=== PATIENT | male | born 1945 | race Caucasian/White ===

== ENCOUNTER 2017-09-17 12:03 | Day surgery (SDC) | payer BC ==
[~2017-09-17 12:03] MED LIST: Buffered Lidocaine 0.9% SYRIN* 5 ML/SYR SYRINGE INTRADERM ONE; Dexamethasone IV* 4 MG/ML 1 ML (4 MG) IV SLOW PU ONE; Famotidine IV* 10 MG/ML 2 ML (20 mg) IV ONE
[2017-09-17] MEDS ORDERED: Dexamethasone IV* 4 MG/ML 1 ML (4 MG) ONE (12:06)
[2017-09-17] MEDS ORDERED: Buffered Lidocaine 0.9% SYRIN* 5 ML/SYR SYRINGE ONE (12:07)
[2017-09-17] MEDS ORDERED: Propofol* 10 MG/ML 20 ML BTL IV PUSH ONE (13:36)
[2017-09-17] MEDS ORDERED: Midazolam* 1 MG/ML 5 ML VIAL (5 MG) ONE (13:36)
[2017-09-17] MEDS ORDERED: fentaNYL* 50 MCG/ML 2 ML VIAL (100 MCG VIAL) ONE (13:36)
[2017-09-17] MEDS ORDERED: Ondansetron INJ* 2 MG/ML VIAL ONE (13:36)
[2017-09-17] MEDS ORDERED: ceFAZolin 2 GM PREMIX (*) 2 GM/50 ML BAG IVPB ONE (13:42)
[2017-09-17] MEDS ORDERED: Famotidine TAB* 20 MG ONE (14:01)
[2017-09-17] MEDS ORDERED: Lidocain 1% EPI 1:100,000 * 30 ML MDV ONE (14:11)
[2017-09-17] MEDS ORDERED: Mineral Oil Sterile, TOPICAL* 25 ML BTL ONE (14:11)
[2017-09-17] MEDS ORDERED: Methylene Blue 0.5 %* 50 MG/10 ML AMP IV ONE (14:11)
[2017-09-17] MEDS ORDERED: Naloxone* 0.4 MG/ML 1 ML VIAL IV PRN (16:17)
[2017-09-17 17:46] VITALS: BP 131/86
== END 2017-09-17 18:01 | disposition home or self-care (01) ==
LOC: OR 12:03
PROVIDERS: ATTEND Plastic Surgery
DX: C44.319 Basal cell carcinoma of skin of other parts of face (principal); I10 Essential (primary) hypertension; I48.91 Unspecified atrial fibrillation; Z79.01 Long term (current) use of anticoagulants; Z87.891 Personal history of nicotine dependence; N18.9 Chronic kidney disease, unspecified; E78.5 Hyperlipidemia, unspecified; Z86.73 Personal history of transient ischemic attack (TIA), and cerebral infarction without residual deficits
CPT/HCPCS: 88305; 88331; 88332; A9270-GY; J0690; J1100; J2250; J2405; J2704; J3010

== ENCOUNTER 2019-01-27 07:06 | Inpatient (IN) | payer MEDICARE ==
--- NOTE | 2019-01-19 18:36 | HP ---
PREOPERATIVE HISTORY AND PHYSICAL: DATE OF ADMISSION: 01/29/19 ATTENDING SURGEON: Dr. Anderson * (DICTATED BY DILCIA COY) CHIEF COMPLAINT: Right hip pain. HISTORY OF PRESENT ILLNESS: This is a 73-year-old male, who has had approximately a year and a half of increasingly severe right hip pain. The patient reports 7/10 sharp shooting pain in the right groin. The pain can be increased with walking more than a block and he has had to use a cane at all times for ambulation. He has tried use of anti-inflammatories, narcotic pain medication, ambulatory assist devices, as well as a home exercise program without relief. He has difficulty with standing and stair climbing. He is seeking surgical intervention at this time. PAST MEDICAL HISTORY: Hypertension, atrial fibrillation, hypercholesterolemia, colitis, TIA, and skin cancer. PAST SURGICAL HISTORY: Spinal fusion x3, skin cancer excision, and thumb surgery. He denies anesthetic complications with any of these procedures. CURRENT MEDICATIONS: 1. Amlodipine besylate 5 mg 1 tab by mouth daily. 2. Delzicol 400 mg by mouth 3 times daily. 3. Tylenol Extra Strength 500 mg 3 times daily as needed. 4. Lovastatin 20 mg 1 tab by mouth q.h.s. 5. Metoprolol succinate ER 50 mg one and one-half tabs by mouth twice daily. 6. Eliquis 5 mg 1 tab by mouth twice daily. 7. Tramadol 50 mg 1 tab by mouth every 6 hours as needed for pain. ALLERGIES: NEURONTIN causes severe tremors and BROMIDE causes a rash. FAMILY HISTORY: Positive for heart disease in his father and a sibling with cancer, but no diabetes. SOCIAL HISTORY: He lives with his and she will be caring for him postoperatively. He is retired and disabled due to chronic back issues. He denies tobacco, alcohol, or recreational drug use and he tries to be active with ambulation and a cane. REVIEW OF SYSTEMS: Fourteen systems are reviewed with the patient today. They are positive for right hip pain and chronic back pain. He denies fever, chills , chest pain, or shortness of breath with exertion, and all other systems are negative. PHYSICAL EXAMINATION GENERAL: He is a well-developed, well-nourished, pleasant male, seated in exam chair, in no acute distress, with appropriate affect. VITAL SIGNS: Height is 69 inches, weight 214. Blood pressure 128/70, pulse 72. HEENT: Normocephalic, atraumatic. Hearing and vision are grossly intact, with extraocular movements intact. NECK: The trachea is midline and symmetrical. LUNGS: Clear to auscultation. No wheezes, rales, or rhonchi appreciated. CARDIO: Irregular rate and rhythm. No murmurs, rubs, or gallops appreciated. ABDOMEN: Nondistended, nontender. Bowel sounds present. GENITOURINARY: Deferred. MUSCULOSKELETAL: Right lower extremity: Skin is pink, dry, and intact without abrasions or open wounds. He flexes the hip to 70 degrees with severe pain and has 0 degrees of internal rotation and 15 degrees of external rotation with severe groin pain. No distal edema is appreciated. He has active range of motion with 5/5 strength against resistance in 4 planes in the right ankle and sensation is intact with a 2+ dorsalis pedis pulse. IMAGING: Multiple x-rays of the patient's hip were reviewed and show severe end- stage osteoarthritis with [id number] contact. There is joint space narrowing, osteophyte formation, and subchondral sclerosis. ASSESSMENT: Right hip severe osteoarthritis. PLAN: Right total hip arthroplasty with Dr. Anderson. The patient's questions were answered and he would like to proceed. He will follow up postoperatively and medications will be dispensed upon discharge from the hospital. DILCIA COY [id number]/[facility] #: [id number] MEHDI
[~2019-01-27 07:06] MED LIST changes: +Acetaminophen TAB* 325 MG PO ONE; -Buffered Lidocaine 0.9% SYRIN* 5 ML/SYR SYRINGE INTRADERM ONE; +Buffered Lidocaine 1% SYRIN* 1 ML/SYRINGE INTRADERM ONE; -Famotidine IV* 10 MG/ML 2 ML (20 mg) IV ONE; +Famotidine TAB* 20 MG PO ONE; +Lactated Ringers 1000 ML Bag* 1,000 ML IV SCH; +celeCOXIB CAP* 200 MG PO ONE
--- OUTSIDE RECORDS SUMMARY | 2019-01-27 07:10 | XMS REPORT | Summary of Care ---
:1945 Author Organization [facility] Address [address] [address] Care Team Providers Name Role Phone Wagner Easton MD Primary Care Provider Reason for Visit Reason Comments Pre-Op Exam Pt. scheduled for Total Right Hip Replacement with Dr. Maya Anderson on 01/27/19 Medication Management Please discuss Eliquis hold for Surgery. Encounter Details Date Type Department Care Team Description 01/19/2019 Office Visit Demian Gamboa, Preoperative cardiovascular examination (Primary Dx); Cardiology MD Christian Persistent atrial fibrillation (HCC); [address] Chronic diastolic congestive heart failure (HCC); [place] [address] [place] [address] Essential hypertension [phone] Allergies Active Allergy Reactions Severity Noted Date Comments Bromine Rash 01/18/2017 Gabapentin ENGINEERING TECHNICAL WRITER Reaction 01/18/2017 Uncontrolled Tremors documented as of this encounter (statuses as of 01/19/2019) Medications Medication Sig Dispensed Refills Start Date End Date Status mesalamine (DELZICOL) Take 400 mg by 0 Active 400 MG Oral CAPSULE mouth THREE DELAYED RELEASE TIMES DAILY. Lovastatin 20 MG Oral Take 20 mg by 0 Active Tab mouth EVERY BEDTIME. Acetaminophen Take by mouth. 0 Active (ACETAMINOPHEN EXTRA STRENGTH) 500 MG Oral Cap amLodipine (NORVASC) 5 Take 5 mg by 0 Active MG Oral Tab mouth DAILY. metoprolol succinate TAKE ONE TABLET 90 Tab 3 02/17/2018 Active (TOPROL XL) 100 MG Oral BY MOUTH EVERY TABLET SR 24 DAY HRIndications: Persistent atrial fibrillation (HCC) tramadol (ULTRAM) 50 MG Take 50 mg by 0 Active Oral Tab mouth EVERY SIX HOURS NEEDED for Pain. ELIQUIS 5 MG Oral TAKE ONE TABLET 180 Tab 3 06/26/2018 Active TabIndications: BY MOUTH TWICE A Persistent atrial DAY fibrillation (HCC) documented as of this encounter (statuses as of 01/19/2019) Active Problems Problem Noted Date Persistent atrial fibrillation 01/18/2017 Mixed hyperlipidemia 01/18/2017 Chronic diastolic congestive heart failure 01/18/2017 BPH (benign prostatic hyperplasia) 01/18/2017 Essential hypertension 01/18/2017 Collagenous colitis 01/18/2017 documented as of this encounter (statuses as of 01/19/2019) Resolved Problems Problem Noted Date Resolved Date CKD (chronic kidney disease) 01/18/2017 01/18/2017 documented as of this encounter (statuses as of 01/19/2019) Social History Tobacco Use Types Packs/Day Years Used Date Former Smoker Smokeless Tobacco: Never Used Sex Assigned at Date Recorded Not on file Job Start Date Occupation Industry Not on file Not on file Not on file Travel History Travel Start Travel End No recent travel history available. documented as of this encounter Last Filed Vital Signs Vital Sign Reading Time Taken Comments Blood Pressure 122/84 01/19/2019 1:38 PM EDT Pulse 85 01/19/2019 1:38 PM EDT Temperature - - Respiratory Rate - - Oxygen Saturation - - Inhaled Oxygen Concentration - - Weight 96.2 kg (212 lb) 01/19/2019 1:38 PM EDT Height 180.3 cm (5' 11") 01/19/2019 1:38 PM EDT Body Mass Index 29.57 01/19/2019 1:38 PM EDT documented in this encounter Patient Instructions Patient InstructionsMcChristian Martinez MD - 01/19/2019 1:40 PM EDT No medication changes today. OK to proceed with your hip surgery as we discussed. Hold the Eliquis for 48 hours prior to your surgery. Follow up in May as previously scheduled. documented in this encounter Progress Notes Christian Gamboa MD - 01/19/2019 1:40 PM EDT [facility] Note Patient: Juan Kennedy Date of : 1945 Date of Service: 01/19/2019 REFERRING PRACTITIONER: Maya Anderson PRIMARY CARE PROVIDER: Wagner Easton Chief Complaint: Chief Complaint Patient presents with Pre-Op Exam Pt. scheduled for Total Right Hip Replacement with Dr. Maya Anderson on 01/27/19 Medication Management Please discuss Eliquis hold for Surgery. History of Present Illness: We had the pleasure of seeing Juan Kennedy today at the [facility] Cardiology Office. He is a 73-y.o. male with HTN, hyperlipidemia, longstanding persistent atrial fibrillation, and chronic diastolic CHF. Mr. Kennedy returns to cardiology clinic today for perioperative evaluation prior to undergoing R total hip replacement with Dr. Anderson on 01/27. Since his last visit with me, he reports feeling fine other than his hip pain. D/t the pain he's unable to do much activity, but he's able to climb 1-2 flights of stairs without any CP or limiting dyspnea. Denies any palpitations, lightheadedness, or syncope. No orthopnea or paroxysmal dyspnea but does get some mild chronic lower extremity edema. No bleeding issues on Eliquis. Patient Active Problem List Diagnosis Persistent atrial fibrillation (HCC) Mixed hyperlipidemia Chronic diastolic congestive heart failure (HCC) BPH (benign prostatic hyperplasia) Essential hypertension Collagenous colitis Past Medical History: Diagnosis Date BPH (benign prostatic hyperplasia) 01/18/2017 Chronic diastolic congestive heart failure (HCC) 01/18/2017 CKD (chronic kidney disease) 01/18/2017 Collagenous colitis 01/18/2017 Essential hypertension 01/18/2017 Mixed hyperlipidemia 01/18/2017 Persistent atrial fibrillation (HCC) 01/18/2017 No past surgical history on file. Allergies Allergen Reactions Kerens Ion [Bromine] Rash Gabapentin ENGINEERING TECHNICAL WRITER Reaction Uncontrolled Tremors Current Outpatient Medications Medication Acetaminophen (ACETAMINOPHEN EXTRA STRENGTH) 500 MG Oral Cap amLodipine (NORVASC) 5 MG Oral Tab ELIQUIS 5 MG Oral Tab Lovastatin 20 MG Oral Tab mesalamine (DELZICOL) 400 MG Oral CAPSULE DELAYED RELEASE metoprolol succinate (TOPROL XL) 100 MG Oral TABLET SR 24 HR tramadol (ULTRAM) 50 MG Oral Tab Family history noncontributory Social History Socioeconomic History Marital status: Spouse name: Not on file Number of children: Not on file Years of education: Not on file Highest education level: Not on file Occupational History Not on file Social Needs Financial resource strain: Not on file Food insecurity: Worry: Not on file Inability: Not on file Transportation needs: Medical: Not on file Non-medical: Not on file Tobacco Use Smoking status: Former Smoker Smokeless tobacco: Never Used Substance and Sexual Activity Alcohol use: Not on file Drug use: Not on file Sexual activity: Not on file Lifestyle Physical activity: Days per week: Not on file Minutes per session: Not on file Stress: Not on file Relationships Social connections: Talks on phone: Not on file Gets together: Not on file Attends sikh service: Not on file Active member of club or organization: Not on file Attends meetings of clubs or organizations: Not on file Relationship status: Not on file Intimate partner violence: Fear of current or ex partner: Not on file Emotionally abused: Not on file Physically abused: Not on file Forced sexual activity: Not on file Other Topics Concern Not on file Social History Narrative Not on file Review of Systems - Negative except as noted in HPI. Physical Exam: Vitals: 01/19/19 1338 BP: 122/84 BP Location: Left arm Patient Position: Sitting Pulse: 85 Weight: 212 lb (96.2 kg) Height: 5' 11" (1.803 m) Body mass index is 29.57 kg/m. General: Overweight, alert 73-y.o. male in NAD HEENT: anicteric, MMM, no E/E OP, conj pink Neck: JVP approx 5 cm above RA, no carotid bruits or LAD CV: Irreg irreg, normal s1/s2, 1-2/6 CECI at USB as before. Pulm: CTA bilaterally without wheezes, rhonchi, or rales. No increased work of breathing. Abd: soft, obese, NT, ND, +BS. No appreciable pulsatile masses or bruits. Ext: Trace bilateral lower extremity edema, no cyanosis, no cords, redness, or warmth, 2+ distal pulses Neuro: no gross focal deficits but has a significant limp with climbing onto the exam table. Skin: no visible lesions Labs: No results found for: NA, K, CL, CO2, GLUCOSE, BUN, CREATININE, CALCIUM, TP, ALBUMIN, AST, ALT, ALK,TBILI, EGFR No results found for: BNP No results found for: CHOL, TRIG, HDL, LDL, LDLHDLRATIO, CHOLHDLRATIO Cardiac Studies: EKG Today (I personally reviewed): Afib in 80s. Incomplete RBBB. Poor R wave progression. Borderline inferior Q waves. No sig change from prior. TTE 02/08/17: FINAL IMPRESSION: Patient is in atrial fibrillation at the time of examination. Mild concentric LVH with moderate left atrial enlargement. Normal LV systolic function with no regional wall motion abnormalities; estimated LVEF 60-65%. Normal right heart size and RV systolic function. Aortic valve sclerosis with mild regurgitation and no significant stenosis. No pericardial effusion. Compared to prior echo report from [facility] 09/22/12, the left atrium is now moderately dilated (was previously reported as mild) and a pericardial effusion is no longer seen. All other findings are largely similar. TTE at [facility] 09/22/12: CONCLUSIONS 1. Rhythm is atrial fibrillation. 2. This was a technically adequate study. 3. The left ventricle size is normal. 4. There is mild concentric left ventricular hypertrophy. 5. Estimated LVEF 60 - 65%. 6. The right ventricle is normal in size and wall thickness. 7. The right ventricular systolic function is normal. 8. The left atrium is mildly dilated. 9. The right atrium is normal in size and function. 10. There is mild aortic valve sclerosis without stenosis. 11. There is trace to mild aortic incompetence. 12. Both mitral leaflets are mildly thickened. 13. Trace to mild mitral regurgitation is present. 14. The pulmonic valve appears structurally normal. 15. Trace/mild (physiologic)pulmonic regurgitation present. 16. The tricuspid valve appears structurally normal. 17. Mild tricuspid regurgitation present. 18. There is a trivial pericardial effusion present. 19. The aortic root is normal. 20. No prior reports available for comparison. Assessment & Plan: Juan Kennedy is a 73-y.o. male with HTN, hyperlipidemia, longstanding persistent atrial fibrillation, and chronic diastolic CHF. ICD-9-CM ICD-10-CM 1. Preoperative cardiovascular examination V72.81 Z01.810 AMBULATORY 12 LEAD EKG (GLOBAL) 2. Persistent atrial fibrillation (HCC) 427.31 I48.1 3. Chronic diastolic congestive heart failure (HCC) 428.32 I50.32 428.0 4. Essential hypertension 401.9 I10 1. Perioperative Risk Assessment: According to the Reese Perioperative Cardiac Risk Assessment Tool,Juan Kennedy has an estimated risk for perioperative NH or cardiac arrest with noncardiac surgeryof approximately 0.19%. According to the Revised Cardiac Risk Index, his estimated risk for perioperative NH, PE, cardiac arrest, or complete heart block with noncardiac surgery is approximately 0.9%.His functional status is no greater than 4 METs but he's limited by his hip pain and exhibits no evidence of angina or decompensated CHF at this time. In order to further evaluate and/or attenuate this patient's risk , I recommend the following: OK to proceed with his planned surgery at an acceptably low cardiac risk as detailed above. I don't have any recent labs available, but assuming his renal function is normal, then I'd recommend holding the Eliquis for 48 hours prior to surgery. If his renal function is impaired (creatinine > 1.5), then I'd recommend holding the Eliquis for 72 hours prior to surgery. Continue metoprolol perioperatively. Restart Eliquis as soon after surgery as deemed safe from a hemostatic standpoint. 2. Longstanding Persistent Atrial Fibrillation: The etiology of atrial fibrillation in this patient is most likely related to obesity and HTN. The heart-rate is currently well controlled on the currentmedical regimen, and there are no significant signs of heart failure. This patient's [id number]-Pegp score is 3. I recommend the following treatment strategy and medical regimen for this patient: Stroke prevention: Based on the patient's [id number] risk profile, I recommend continuing OACtherapy with Eliquis. He's doing well with that med. Rate control: Cont metoprolol XL 100mg daily. Rhythm control: N/A; pt is in chronic Afib and has no symptoms from it. Further workup/management issues: I'm checking a resting echo in May to ensure his LV function remains normal. Thank you for allowing me to participate in the care of Juan Kennedy. We will plan on f/u in our office in May as previously planned or sooner prn. If you have any questions or concerns pleasefeel free to call our office at [phone]. Christian Gamboa MD, 01/19/2019, 14:20 This note was created using my previous note as a template; changes were made where appropriate, andall information in the current note is up to date to the best of my knowledge.Electronically signed by Christian Gamboa MD at 2018 2:20 PM EDTdocumented in this encounter Plan of Treatment Date Type Specialty Care Team Description 05/14/2019 Orders Only Cardiology 05/25/2019 Office Visit Cardiology Christian Gamboa MD [address] [place] [address] [phone] Name Type Priority Associated Diagnoses Order Schedule AMBULATORY 12 LEAD EKG EKG Routine Preoperative cardiovascular Ordered: 05/2019 (GLOBAL) examination Health Maintenance Due Date Last Done Comments MEDICARE ANNUAL WELLNESS VISIT 1945 DEPRESSION SCREENING 1955 HIV SCREENING 09/16/1958 LIPID DISORDER SCREENING 09/16/1961 COLONOSCOPY SCREENING 09/16/1993 ZOSTER IMMUNIZATION SERIES (1 of 2) 09/16/1993 AAA SCREENING/SURVEILLANCE 09/16/2008 FALL RISK ASSESSMENT 09/16/2008 PNEUMOCOCCAL 65+YRS (1 of 2 - 09/16/2008 PCV13) INFLUENZA VACCINE (#1) 2019 HPV IMMUNIZATION SERIES Aged Out No longer eligible based on patient's age to complete this topic MENINGOCOCCAL VACCINE IMM Aged Out No longer eligible based on patient's age to complete this topic documented as of this encounter Results Not on filedocumented in this encounter Visit Diagnoses Diagnosis Preoperative cardiovascular examination - Primary Pre-operative cardiovascular examination Persistent atrial fibrillation (HCC) Atrial fibrillation Chronic diastolic congestive heart failure (HCC) Chronic diastolic heart failure Essential hypertension Unspecified essential hypertension documented in this encounter Insurance Payer Benefit Plan / Subscriber ID Effective Dates Phone Address Type Group [place]IC [place] [employer] xxxxxxxxxxxx [address] [employer] [facility] GENERIC documented as of this encounter
--- OUTSIDE RECORDS SUMMARY | 2019-01-27 07:10 | XMS REPORT | Continuity of Care Document ---
:1945 External Reference #:[id number] Author Name Maya Anderson M.D. (transmitted by agent of provider Joie Barrios) Address [address] [place] [id number] Care Team Providers Name Role Phone Wagner Easton MD - Family Care Team Information Financial Investment Adviser [phone] Medicine Problems Active Problems Provider Date Electrocardiogram abnormal Anton Alcala M.D. Onset: 10/07/2012 Atrial fibrillation Anton Alcala M.D. Onset: 10/07/2012 Benign essential hypertension Anton Alcala M.D. Onset: 10/07/2012 Chronic pulmonary heart disease Anton Alcala M.D. Onset: 10/07/2012 Pure hypercholesterolemia Anton Alcala M.D. Onset: 10/07/2012 Mitral and aortic incompetence Anton Alcala M.D. Onset: 11/10/2012 Localized, primary osteoarthritis of the Ines Trevizo MD Onset: 12/18/2018 pelvic region and thigh Social History Type Date Description Comments Sex Unknown ETOH Use Denies alcohol use Tobacco Use Start: Unknown End: Patient is a former smoker Quit 2012 Unknown Recreational Drug Use Never Used Drugs Smoking Status Reviewed: 01/16/19 Patient is a former smoker Quit 2012 Exercise Type/Frequency Exercises rarely Allergies, Adverse Reactions, Alerts Active Allergies Reaction Severity Comments Date Neurontin Moderate 03/10/2014 [place] [facility] used to treat indoor pool/spa- per 04/22/2014 patient Inactive Allergies NKDA 03/12/2006 Medications Active Medications SIG Qnty Indications Ordering Date Provider Amlodipine Besylate 1 by mouth every 30tabs Anton Thao 02/24/2014 5mg day Magen Alcala Tablets Delzicol take two 270caps Other Ordering 06/10/2013 400mg Capsules capsules by Provider DR calzada twice a day Tylenol Extra Strength tid Other Ordering 11/10/2012 For Arthritis Pain Provider 500mg Tablets Lovastatin po qhs 90tabs Unknown 20mg Tablets Eliquis Take One Tablet Unknown 5mg Tablets By Mouth Twice A Day Tramadol HCL Take One Tablet Unknown 50mg Tablets By Mouth Every 6 Hours as Needed Maximum Daily Dose 4 Acetaminophen ER 1 by mouth twice Unknown 650mg a day Tablets ER Metoprolol Succinate McClintic, ER Christian Walls MD 100mg Tablets ER 24HR Immunizations Description No Information Available Vital Signs Date Vital Result Comment 01/16/2019 10:10am Height 69 inches 5'9" Weight 209.00 lb Heart Rate 55 /min BP Systolic 136 mmHg BP Diastolic 80 mmHg Body Temperature 97.9 F Pain Level 8 BMI (Body Mass Index) 30.9 kg/m2 12/19/2018 2:25pm Height 69 inches 5'9" Weight 214.00 lb BP Systolic 128 mmHg BP Diastolic 70 mmHg Respiratory Rate 20 /min Pain Level 7 BMI (Body Mass Index) 31.6 kg/m2 Results Description No Information Available Procedures Description No Information Available Medical Devices Description No Information Available Encounters Type Date Location Provider Dx Diagnosis Office Visit 12/19/2018 Orthopedic Maya Anderson, M25.551 Pain in right hip 2:15p [facility] M16.11 Unilateral primary osteoarthritis, right hip Office Visit 12/18/2018 Orthopedic Ines Trevizo M16.11 Unilateral primary 10:30a [facility], right C.MNazaninANazanin hip Assessments Date Code Description Provider 12/22/2018 M25.551 Pain in right hip Maya Anderson M.D. 12/22/2018 M16.11 Unilateral primary osteoarthritis, right hip Maya Anderson M.D. 12/19/2018 M25.551 Pain in right hip Maya Anderson M.D. 12/19/2018 M16.11 Unilateral primary osteoarthritis, right hip Maya Anderson M.D. 12/18/2018 M16.11 Unilateral primary osteoarthritis, right hip Ines Trevizo MD Plan of Treatment Future Appointment(s):01/29/2019 4:15 pm - DAVE Reina at [facility].01/29/2019 4:15 pm - Bashir Dan PA-C at [facility].01/29/2019 4:15 pm - Maya Anderson M.D. at [facility] Functional Status Description No Information Available Mental Status Description No Information Available Referrals Description No Information Available
[2019-01-27] MEDS ORDERED: celeCOXIB CAP* 200 MG ONE (07:58)
[2019-01-27] MEDS ORDERED: Famotidine TAB* 20 MG ONE (07:58)
[2019-01-27] MEDS ORDERED: Dexamethasone IV* 4 MG/ML 1 ML (4 MG) ONE (07:58)
[2019-01-27] MEDS ORDERED: Acetaminophen TAB* 325 MG ONE (07:58)
[2019-01-27] MEDS ORDERED: Buffered Lidocaine 1% SYRIN* 1 ML/SYRINGE INTRADERM ONE (07:59)
[2019-01-27] MEDS ORDERED: ceFAZolin 2 GM in NS PREMIX(*) 0 GM/0 ML BAG IVPB ONE ×2 (07:59→08:02)
[2019-01-27] MEDS ORDERED: ceFAZolin 2 GM in NS PREMIX(*) 2 GM/100 ML BAG IVPB ONE (08:02)
[2019-01-27] MEDS ORDERED: HYDROmorphone INJ1* 1 MG/ML SYRINGE ONE (08:51)
[2019-01-27] MEDS ORDERED: fentaNYL* 50 MCG/ML 2 ML VIAL (100 MCG VIAL) ONE (08:51)
[2019-01-27] MEDS ORDERED: Rocuronium* 10 MG/ML VIAL ONE (08:51)
[2019-01-27] MEDS ORDERED: Midazolam* 1 MG/ML 2 ML VIAL (2 MG) ONE (08:52)
[2019-01-27] MEDS ORDERED: Lidocaine 2% PF * 5 ML VIAL ONE (08:52)
[2019-01-27] MEDS ORDERED: KETAMINE HCL* 50 MG/ML 10 ML VIAL ONE (08:52)
[2019-01-27] MEDS ORDERED: ROPIVACAINE 5 MG/ML 30 ML BTL (0.5%) ONE (09:19)
[2019-01-27] MEDS ORDERED: DiMENhydriNATE IV* 50 MG/ML VIAL IV PUSH PRN (10:25)
[2019-01-27] MEDS ORDERED: PROCHLORPERAZINE INJ 5 MG/ML 2 ML VIAL IV PRN (10:25)
[2019-01-27] MEDS ORDERED: oxyCODONE TAB* 5 MG TAB PO PRN (10:25)
[2019-01-27] MEDS ORDERED: Acetaminophen IV 1GM/100ML * 1,000 MG/100 ML VIAL IVPB ONE (10:25)
[2019-01-27] MEDS ORDERED: HYDROmorphone INJ1* 1 MG/ML SYRINGE IV PRN (10:25)
[2019-01-27] MEDS ORDERED: Naloxone* 0.4 MG/ML 1 ML VIAL IV PRN (10:25)
[2019-01-27] MEDS ORDERED: fentaNYL* 50 MCG/ML 2 ML VIAL (100 MCG VIAL) IV PRN (10:25)
[2019-01-27] MEDS ORDERED: Propofol* 10 MG/ML 20 ML BTL ONE (10:42)
[2019-01-27] MEDS ORDERED: Phenylephrine 40 MCG/ML SYRINGE ONE (10:43)
[2019-01-27] MEDS ORDERED: EPHEDrine (Pressors)* 50 MG/ML VIAL ONE (10:43)
[2019-01-27] MEDS ORDERED: Ondansetron INJ* 2 MG/ML VIAL ONE (11:46)
[2019-01-27] MEDS ORDERED: diPHENhydraMINE IV* 50 MG/ML 1 ml VIAL (BENADRYL) IV PRN (11:54)
[2019-01-27] MEDS ORDERED: Ondansetron INJ* 2 MG/ML VIAL IV PRN (11:54)
[2019-01-27] MEDS ORDERED: Bisacodyl SUPP* 10 MG SUPP PR PRN (11:54)
[2019-01-27] MEDS ORDERED: Acetaminophen TAB* 325 MG PO PRN (11:54)
[2019-01-27] MEDS ORDERED: Cyclobenzaprine TAB* 10 MG PO PRN (11:54)
[2019-01-27] MEDS ORDERED: Morphine INJ* 2 MG/ML 1 ML SYRINGE (TWO MG - NEW SYRINGE VERSION) IV PRN (11:54)
[2019-01-27] MEDS ORDERED: Magnesium Hydroxide LIQ* 30 ML UDC PO PRN (11:54)
[2019-01-27] MEDS ORDERED: oxyCODONE/Acetamin 5/325 MG* TAB PO PRN (11:54)
[2019-01-27] MEDS ORDERED: Acetaminophen IV 1GM/100ML * 100 ML ONE (12:22)
[2019-01-27] MEDS: Lactated Ringers 1000 ML Bag* 1,000 ML IV SCH (13:20)
--- NOTE | 2019-01-27 14:05 | CONS ---
HOSPITAL MEDICINE CONSULTATION REPORT: DATE OF CONSULT: 01/27/19 PROVIDER: Rani Diaz NP ATTENDING PHYSICIAN: Dr. Anderson.* CONSULTING PHYSICIAN: Dr. Tamia Ferrer (dictated by Rani Diaz NP). REASON FOR CONSULT: Co-management of chronic medical conditions. HISTORY OF PRESENT ILLNESS: Mr. Kennedy is a 73-year-old male with a past medical history significant for hypertension, atrial fibrillation, hyperlipidemia, history of TIA, CHF, BPH, and depressive disorder who presented to [facility] for an elective right total hip arthroplasty with Dr. Anderson. Please see dictated H and P from DILCIA Lobo, for complete details. In brief, the patient had ongoing pain, failed conservative measures, therefore opted for a right total hip arthroplasty with Dr. Anderson. In the immediate postoperative period, the patient has no complaints. Due to his chronic medical history of hypertension, atrial fibrillation, and congestive heart failure, Hospital Medicine was asked to see and evaluate the patient to help co- manage his care during his hospitalization. PAST MEDICAL HISTORY: 1. Hypertension. 2. Atrial fibrillation. 3. Hypercholesterolemia. 4. Colitis. 5. TIA. 6. History of skin cancer. 7. Diastolic congestive heart failure. 8. BPH. 9. Depressive disorder. PAST SURGICAL HISTORY: 1. Spinal fusion x3. 2. Skin cancer excision. 3. Cataract removal. 4. Tendon repair to the left thumb. HOME MEDICATIONS: Include: 1. Amlodipine 5 mg p.o. daily. 2. Tylenol 500 mg as needed for pain. 3. Apixaban 5 mg p.o. b.i.d. 4. Mesalamine 400 mg t.i.d. 5. Lovastatin 20 mg p.o. daily. 6. Metoprolol 100 mg p.o. daily. 7. Tramadol 50 mg p.o. q.6 hours as needed for pain. ALLERGIES: Allergic to BACITRACIN, BROMIDE SALTS, and GABAPENTIN. FAMILY HISTORY: Father from an [place] at the age of 55. No reported history of diabetes. Sister with stomach cancer. SOCIAL HISTORY: The patient denies any tobacco, alcohol, or illicit drug use. Surrogate decision maker in the event he is unable to make his own decisions is his . He is a full code. REVIEW OF SYSTEMS: The patient denies any chest pain, shortness of breath. Denies any nausea, vomiting, or diarrhea. Denies any abdominal pain. Denies any gross hematuria, dysuria, frequency, urgency, or pain with urination. Denies any weakness. PHYSICAL EXAM: General: Mr. Kennedy is a 73-year-old male. He is resting on the stretcher in PACU. He is drowsy. Well developed, well nourished. Vital Signs: Blood pressure 120/84, heart rate 87, respirations are 15, O2 saturation 96%, temperature was 97.2. HEENT: Head is atraumatic, normocephalic. Eyes: EOMs are intact. Sclerae anicteric and not pale. Oral mucosa appeared to be moist. Neck is supple. Lungs are clear to auscultation bilaterally. No wheezes, rales, or rhonchi. Cardiac: S1, S2. Irregular rate and rhythm. No rubs or gallops. Abdomen: Soft and nontender. Bowel sounds are present x4. Extremities: He is able to move all extremities. There is no clubbing or cyanosis. Dressing is dry and intact to his right hip. Neurologic: He is drowsy. He does not answer questions appropriately when asked and then falls asleep. He is able to move all 4 extremities. There is no gross neuro deficits at this time. Skin is intact. He does have a dressing that is dry and intact to his right hip. LABORATORY DATA AND DIAGNOSTIC STUDIES: CBC from 01/16/19: WBCs were 8.1, RBCs 4.97, hemoglobin 16.8, hematocrit was 48, platelet count 211. INR was 1.30. Chemistry, BMP from 01/16/19: Sodium 139, potassium 5.1, chloride 101, carbon dioxide was 29, anion gap was 9, BUN was 22, creatinine 1.47, glucose was 157, calcium 10.6. Total bili was 1.30, ASTs were 20, ALTs were 21, alkaline phosphatase was 46. IMPRESSION AND PLAN: Mr. Kennedy is a 73-year-old male with a past medical history significant for hypertension, atrial fibrillation, hypercholesterolemia , history of transient ischemic attack, and diastolic congestive heart failure who presented to [facility] for an elective right total hip arthroplasty. Due to his chronic medical conditions, Hospital Medicine was asked to consult to help co- manage his care during his hospitalization. Our recommendations are as follows: 1. Status post right total hip arthroplasty: Management per Orthopedics, PT/ OT per Orthopedics, bowel regimen per Orthopedics, pain management per Orthopedics. 2. Hypertension. I would continue on his amlodipine 5 mg as previously prescribed. 3. Atrial fibrillation. The patient should continue on metoprolol 100 mg po daily. as previously prescribed and he needs to resume his apixaban 5 mg p.o. b.i.d. as soon as possible. 4. Hyperlipidemia. The patient should continue on lovastatin 20 mg p.o. daily. 5. History of diastolic congestive heart failure. I would monitor the patient' s fluid intake closely and use caution with IV fluids. 6. FEN: The patient can have heart-healthy diet. 7. Code status: He is full code. 8. DVT prophylaxis: As per Orthopedics. TIME SPENT: Time spent on this consultation was 45 minutes, greater than half that time was spent at the bedside reviewing events leading thus far to his hospitalization, performing physical exam, and reviewing my plan of care. I have discussed this with my attending , Dr. Tamia Ferrer. She is in agreement with my plan. RANI DIAZ, [employer] OPERATOR [id number]/[facility] #: [id number] MEHDI
--- NOTE | 2019-01-27 14:22 | PN ---
Progress Note - Progress Note Date of Service: 01/27/19 Note: patient seen bedside s/p Right total hip arthroplasty this morning. He is feeling well. Minimal hip pain. No nausea, SOB, CP or dizziness, nausea. +DF right ankle. Sensation intact distally.
[2019-01-27] MEDS: oxyCODONE/Acetamin 5/325 MG* TAB PO PRN ×2 (14:38→22:57)
[2019-01-27] MEDS: Atorvastatin* 10 MG TAB PO SCH (18:28)
[2019-01-27] MEDS: ceFAZolin 1 GM ADVAN(*) 1 GM in NS 0.9% 50 ML* 50 ML IVPB SCH (18:28)
[2019-01-27] MEDS: amLODIPine TAB* 5 MG PO SCH (18:28)
[2019-01-27] MEDS: Magnesium Hydroxide LIQ* 30 ML UDC PO SCH (20:40)
[2019-01-27] MEDS: Docusate CAP* 100 MG PO SCH (20:40)
[2019-01-28] MEDS: ceFAZolin 1 GM ADVAN(*) 1 GM in NS 0.9% 50 ML* 50 ML IVPB SCH ×2 (01:46→09:48)
[2019-01-28] MEDS: Lactated Ringers 1000 ML Bag* 1,000 ML IV SCH (03:17)
[2019-01-28] MEDS: oxyCODONE/Acetamin 5/325 MG* TAB PO PRN ×4 (05:44→21:22)
[2019-01-28 07:10] LABS: Hematocrit 39 % (42-52); Hemoglobin 13.3 g/dL (14.0-18.0); Platelet Count 169 10^3/uL (150-450)
[2019-01-28 07:27] LABS: BUN/Creatinine Ratio 17.9 (8-20); Calcium 9.1 mg/dL (8.6-10.3); EGFR African American 57.4 (>60); EGFR Non-African American 47.4 (>60); Potassium 4.8 mmol/L (3.5-5.0)
[2019-01-28] MEDS: Docusate CAP* 100 MG PO SCH ×2 (08:35→20:32)
[2019-01-28] MEDS: Vitamin THERAPEUTIC TAB PO SCH (08:36)
[2019-01-28] MEDS: Magnesium Hydroxide LIQ* 30 ML UDC PO SCH ×2 (08:37→20:32)
[2019-01-28] MEDS ORDERED: Apixaban* 2.5 MG TAB PO SCH (09:00)
[2019-01-28] MEDS ORDERED: Metoprolol Tartrate TAB* 100 MG TAB PO SCH (09:00)
[2019-01-28] MEDS ORDERED: Metoprolol Tartrate TAB* 50 mg PO ONE (10:06)
--- NOTE | 2019-01-28 14:28 | PN ---
Progress Note - Progress Note Date of Service: 01/28/19 SOAP: Subjective: []Pt seen at bedside. He feels well with well controlled hip pain. Progressing well with PT. Denies CP, SOB, dizziness, nausea. Objective: []Gen: NAD, appears well RLE: Right hip dressing CDI, thigh soft, DF/PF intact, DP2+, sensation intact to light touch distally Calves supple and nontender without erythema, edema or palpable cords Assessment: []POD [address] Anderson Plan: []WBAT Posterior hip precautions with strict internal rotation precaution PT/OT eliquis 5 mg po BID home dose resumed at 2100 tonight, given 2.5 mg this morning Vital Signs Temp 98.5 F 01/28/19 11:20 Pulse 90 01/28/19 11:20 Resp 16 01/28/19 12:56 BP 110/72 01/28/19 12:15 Pulse Ox 96 01/28/19 11:20 Intake & Output 01/27/19 01/28/19 01/28/19 18:59 06:59 18:59 Intake Total 1999 1790 1374 Output Total 675 950 200 Balance 6189 545 4382 Weight 211 lb Intake: IV Fluids 1999 990 779 ABX - CEFAZOLIN 779 LR 1999 990 IVPB 100 55 ABX - CEFAZOLIN 100 55 Oral 700 540 Output: Urine 950 200 Broussard 425 Estimated Blood Loss 250 Other: Estimated Void Medium # Voids 1 Laboratory Last Values Hgb 13.3 g/dL (14.0-18.0) L 01/28/19 06:47 Hct 39 % (42-52) L 01/28/19 06:47 Plt Count 169 10^3/uL (150-450) 01/28/19 06:47 MPV 8.0 fL (7.4-10.4) 01/28/19 06:47 Sodium 136 mmol/L (135-145) 01/28/19 06:48 Potassium 4.8 mmol/L (3.5-5.0) 01/28/19 06:48 Chloride 103 mmol/L (101-111) 01/28/19 06:48 Carbon Dioxide 24 mmol/L (22-32) 01/28/19 06:48 Anion Gap 9 mmol/L (2-11) 01/28/19 06:48 BUN 26 mg/dL (6-24) H 01/28/19 06:48 Creatinine 1.45 mg/dL (0.67-1.17) H 01/28/19 06:48 Est GFR ( Amer) 57.4 (>60) 01/28/19 06:48 Est GFR (Non-Af Amer) 47.4 (>60) 01/28/19 06:48 BUN/Creatinine Ratio 17.9 (8-20) 01/28/19 06:48 Glucose 203 mg/dL (70-100) H 01/28/19 06:48 Calcium 9.1 mg/dL (8.6-10.3) 01/28/19 06:48
--- NOTE | 2019-01-28 16:49 | PN ---
Subjective Date of Service: 01/28/19 Interval History: Pt is feeling well. He denies any pain in his hip at rest, it is painful with ambulation. He anticipates going home tomorrow. No CP or SOB. Objective Active Medications: Acetaminophen (Tylenol Tab*) 650 mg PO Q8H PRN PRN Reason: PAIN-MILD/TEMP >/= 100.4 Amlodipine Besylate (Norvasc Tab*) 5 mg PO QPM [facility] Last Admin: 01/27/19 18:28 Dose: 5 mg Apixaban (Eliquis*) 5 mg PO BID [facility] Atorvastatin Calcium (Lipitor*) 5 mg PO QPM [facility] Last Admin: 01/27/19 18:28 Dose: 5 mg Bisacodyl (Dulcolax Supp*) 10 mg AR DAILY PRN PRN Reason: constipation Cyclobenzaprine HCl (Flexeril Tab*) 5 mg PO TID PRN PRN Reason: SPASMS Diphenhydramine HCl (Benadryl Iv*) 25 mg IV Q6H PRN PRN Reason: itching Docusate Sodium (Colace Cap*) 100 mg PO BID [facility] Last Admin: 01/28/19 08:35 Dose: 100 mg Lactated Ringer's (Lactated Ringers 1000 Ml Bag*) 1,000 mls @ 75 mls/hr IV PER RATE [facility] Last Admin: 01/28/19 03:17 Dose: 75 mls/hr Lactulose (Lactulose*) 30 ml PO Q6H PRN PRN Reason: constipation Magnesium Hydroxide (Milk Of Magnesia Liq*) 30 ml PO BID [facility] Last Admin: 01/28/19 08:37 Dose: 30 ml Magnesium Hydroxide (Milk Of Magnesia Liq*) 30 ml PO Q6H PRN PRN Reason: constipation Mesalamine (Mesalamine Dr Cap*) 800 mg PO QAM [facility] Last Admin: 01/28/19 08:35 Dose: 800 mg Mesalamine (Mesalamine Dr Cap*) 400 mg PO BEDTIME [facility] Last Admin: 01/27/19 20:41 Dose: 400 mg Morphine Sulfate (Morphine Inj (Syringe))*) 2 mg IV Q2H PRN PRN Reason: PAIN - SEVERE Multivitamins (Theragran Tab*) 1 tab PO DAILY [facility] Last Admin: 01/28/19 08:36 Dose: 1 tab Ondansetron HCl (Zofran Inj*) 4 mg IV Q6H PRN PRN Reason: nausea Oxycodone/Acetaminophen (Percocet 5/325 Tab*) 1 tab PO Q4H PRN PRN Reason: PAIN - MILD Last Admin: 01/28/19 12:56 Dose: 1 tab Oxycodone/Acetaminophen (Percocet 5/325 Tab*) 2 tab PO Q4H PRN PRN Reason: PAIN - MODERATE Vital Signs - 8 hr 01/28/19 01/28/19 01/28/19 09:22 09:47 11:20 Temperature 98.5 F Pulse Rate 88 90 Respiratory 16 Rate Blood Pressure 108/82 (mmHg) O2 Sat by Pulse 96 Oximetry 01/28/19 01/28/19 01/28/19 12:15 12:56 15:47 Temperature 98.6 F Pulse Rate 84 Respiratory 16 16 Rate Blood Pressure 110/72 114/72 (mmHg) O2 Sat by Pulse 95 Oximetry Oxygen Devices in Use Now: None Appearance: Elderly male sitting up in bed, NAD Eyes: No Scleral Icterus Ears/Nose/Mouth/Throat: Mucous Membranes Moist Respiratory: Symmetrical Chest Expansion and Respiratory Effort, Clear to Auscultation - anteriorly Cardiovascular: NL Sounds; No Murmurs; No JVD, RRR, - - trace B/L LE edema Abdominal: NL Sounds; No Tenderness; No Distention Extremities: No Clubbing, Cyanosis Skin: No Nodules or Sclerosis, - - hip incision not inspected by myself Neurological: Alert and Oriented x 3 Result Diagrams: 01/28/19 06:47 01/28/19 06:48 Assess/Plan/Problems-Billing Mr Kennedy is a 73 yo M who has a h/o HTN, afib and colitis who was admitted after an elective R total hip replacement. - Patient Problems (1) Status post total hip replacement, right Current Visit: Yes Status: Acute Code(s): Z96.641 - PRESENCE OF RIGHT ARTIFICIAL HIP JOINT SNOMED Code(s): 171654132344 Comment: Management per orthopedics. (2) HTN (hypertension) Current Visit: Yes Status: Acute Code(s): I10 - ESSENTIAL (PRIMARY) HYPERTENSION SNOMED Code(s): 26248567 Comment: BP was soft overnight and this AM. Metoprolol dose cut in half this AM. BP remains stable. (3) Afib Current Visit: Yes Status: Acute Code(s): I48.91 - UNSPECIFIED ATRIAL FIBRILLATION SNOMED Code(s): 51775997 Comment: HR is controlled. Continue half dose of metoprolol and eliquis. (4) Colitis Current Visit: Yes Status: Acute Code(s): K52.9 - NONINFECTIVE GASTROENTERITIS AND COLITIS, UNSPECIFIED SNOMED Code(s): 50266330 Comment: Continue mesalamine. (5) DVT prophylaxis Current Visit: Yes Status: Acute Code(s): Z29.9 - ENCOUNTER FOR PROPHYLACTIC MEASURES, UNSPECIFIED SNOMED Code(s): 555407735 Comment: Eliquis to start tonight (6) Full code status Current Visit: Yes Status: Acute Code(s): Z78.9 - OTHER SPECIFIED HEALTH STATUS SNOMED Code(s): 621908923
[2019-01-28] MEDS: amLODIPine TAB* 5 MG PO SCH (18:15)
[2019-01-28] MEDS: Atorvastatin* 10 MG TAB PO SCH (18:15)
[2019-01-28] MEDS ORDERED: Apixaban* 5 MG TAB PO SCH (21:00)
[2019-01-29 02:37] LABS: Troponin I 0.08 ng/mL (<0.04)
[2019-01-29] MEDS ORDERED: Nitroglycerin TAB 0.4 MG* 0.4 MG TAB SL PRN (02:51)
[2019-01-29 05:06] LABS: Hematocrit 37 % (42-52); Hemoglobin 12.5 g/dL (14.0-18.0); Mean Corpuscular HGB Conc 34 g/dL (31-36); Mean Corpuscular Hemoglobin 33 pg (27-31); Mean Corpuscular Volume 98 fL (80-94); Mean Platelet Volume 8.5 fL (7.4-10.4); Platelet Count 167 10^3/uL (150-450); Red Blood Count 3.76 10^6 /uL (4.18-5.48); Red Cell Distribution Width 13 % (10-15); White Blood Count 15.8 10^3/uL (3.5-10.8)
[2019-01-29 06:07] LABS: ALT 17 U/L (7-52); AST 37 U/L (13-39); Albumin 3.9 g/dL (3.2-5.2); Albumin/Globulin Ratio 1.6 (1-3); Alkaline Phosphatase 38 U/L (34-104); Anion Gap 8 mmol/L (2-11); BUN/Creatinine Ratio 24.1 (8-20); Blood Urea Nitrogen 39 mg/dL (6-24); CO2 Carbon Dioxide 26 mmol/L (22-32); Calcium 9.5 mg/dL (8.6-10.3); Chloride 103 mmol/L (101-111); EGFR African American 50.5 (>60); EGFR Non-African American 41.7 (>60); Globulin 2.5 g/dL (2-4); Glucose 197 mg/dL (70-100); Sodium 137 mmol/L (135-145); Total Protein 6.4 g/dL (6.4-8.9)
[2019-01-29] MEDS: oxyCODONE/Acetamin 5/325 MG* TAB PO PRN (06:08)
[2019-01-29 06:15] LABS: ABS Lymphocytes 1.6 10^3/ul (1.0-4.8); ABS Monocytes 1.6 10^3/ul (0-0.8); ABS Neutrophils 12.5 10^3/ul (1.5-7.7); Eosinophil % 0.2 %; Lymphocyte % 10.2 %; Nucleated Red Blood Cells % 0.1
[2019-01-29 06:16] LABS: Troponin I 0.08 ng/mL (<0.04)
--- NOTE | 2019-01-29 07:36 | PN ---
Progress Note - Progress Note Date of Service: 01/29/19 SOAP: Subjective: Pt. reports episode of chest tightness overnight, he reports he had multiple ekg 's and chest pressure resolved on its own. Objective: Vital Signs: Temp Pulse Resp BP Pulse Ox 98.4 F 106 16 133/80 92 01/29/19 07:19 01/29/19 07:19 01/29/19 07:19 01/29/19 07:19 01/29/19 07:19 Laboratory Results - last 24 hr 01/29/19 01/29/19 01/29/19 02:06 04:28 04:28 WBC 15.8 H RBC 3.76 L Hgb 12.5 L Hct 37 L MCV 98 H MCH 33 H MCHC 34 RDW 13 Plt Count 167 MPV 8.5 Neut % (Auto) 79.4 Lymph % (Auto) 10.2 [place] % (Auto) 10.1 Eos % (Auto) 0.2 Baso % (Auto) 0.1 Absolute Neuts (auto) 12.5 H Absolute Lymphs (auto) 1.6 Absolute Monos (auto) 1.6 H Absolute Eos (auto) 0.0 Absolute Basos (auto) 0.0 Absolute Nucleated RBC 0.0 Nucleated RBC % 0.1 Sodium 137 Potassium 5.0 Chloride 103 Carbon Dioxide 26 Anion Gap 8 BUN 39 H Creatinine 1.62 H Est GFR ( Amer) 50.5 Est GFR (Non-Af Amer) 41.7 BUN/Creatinine Ratio 24.1 H Glucose 197 H Calcium 9.5 Total Bilirubin 0.70 AST 37 ALT 17 Alkaline Phosphatase 38 Troponin I 0.08 H* 0.08 H* Total Protein 6.4 Albumin 3.9 Globulin 2.5 Albumin/Globulin Ratio 1.6 heent -yudi, alert and oriented x 3 chest - unlabored breathing heart - s1 and s2, irreg rhythm, tachy RLE - dressing c/d/i. distally nvi. Assessment: 73 yo M pod 2 s/p RTHA Plan: Chest pain/tightness overnight with cardiac history afib, and elevated troponins x 2. Echo being done now. Will obtain cardiac consult and appreciate hospitalist support. Hold d/c for today - will observe and follow troponins/monitor for any further chest pain. Cont Eliquis
[2019-01-29] MEDS ORDERED: Iodixanol* (CONTRAST) 320 MG/ML 100 ML SDV IV ONE (08:12)
--- NOTE | 2019-01-29 08:20 | PN ---
Hospitalist Progress Note Date of Service: 01/29/19 Responded to CAT team call for sudden onset right sided pleuritic chest pain which was recurrent from pain overnight. Patient denies shortness of breath, dizziness, or other symptoms. Patient states the pain recurs with every deep breath. Patient denies F/C. Patient is POD #2 from [facility]. Patient heart rate is tachycardic and irregularly irregular. Lungs are clear, patient is alert and oriented x3. CTA chest, Repeat Troponin, and heparin drip ordered. EKG shows lateral ST depressions and S waves in lead 1, Q waves in lead 3. Echo read pending.
[2019-01-29] MEDS ORDERED: Heparin DRIP 25,000 UNITS(*) 25,000 UNITS/500 ML BAG IV SCH (08:30)
[2019-01-29] MEDS ORDERED: Heparin VIAL(*) 5000 UNITS/ML VIAL (FIVE THOUSAND) IV SCH (09:00)
[2019-01-29] MEDS ORDERED: Metoprolol Succinate XL TAB* 100 MG PO SCH (09:00)
--- NOTE | 2019-01-29 09:10 | ECHO ---
*[facility]* [place] [address] Fax #: [phone] Transthoracic Echocardiogram Patient: Juan Kennedy : 1945 Study Date: 01/29/2019 Age: 73 Gender: M HR: Height: 71 in /180.3 cm BSA: 2.16 m^2 Weight: 210.6 lb /95.7 kg BMI: 29.4 kg/m^2 *Principal Web Developer: * Neelam Soto [facility] *Referring Physician: * Amarjit Roger *Reading Physician: * Jonas Salazar MD Indications: Chest Pain, unspecified. History: A-Fib, prior TIA. S/P right hip replacement01/27/2019. Risk factors: Hypertension. Dyslipidemia. Conclusions Summary: - Left ventricle: The cavity size is normal. Wall thickness is mildly increased. Systolic function is normal. The estimated ejection fraction is 60-65%. - Left atrium: The atrium is mildly dilated. - Mitral valve: There is mild to moderate regurgitation. - Aortic valve: A bicuspid morphology cannot be excluded. The leaflets are mildly thickened. Valve mobility is restricted. There is mild regurgitation. - Tricuspid valve: There is mild regurgitation. - Pulmonary arteries: Systolic pressure is mildly to moderately increased, estimated to be 49 mm Hg. Pulmonary artery pressure has increased from the previous study. Study data: Transthoracic echocardiogram. Procedure: Transthoracic echocardiography was performed. Image quality was adequate. Complete 2D, spectral Doppler, and color flow Doppler. Patient room number: 348. The previous study was not available, so comparison is made to the report of February 2014. Rhythm: Atrial fibrillation. Findings Left ventricle: The cavity size is normal. Wall thickness is mildly increased. Systolic function is normal. The estimated ejection fraction is 60-65%. Wall motion is normal; there are no regional wall motion abnormalities. Left ventricular diastolic function parameters are indeterminate. Right ventricle: Well visualized. The cavity size is normal. Wall thickness is normal. Systolic function is normal. Ventricular septum: Well visualized. Left atrium: Well visualized. The atrium is mildly dilated. Right atrium: Well visualized. The atrium is at the upper limits of normal in size. Atrial septum: Well visualized. Mitral valve: Well visualized. The leaflets are mildly thickened. No echocardiographic evidence for prolapse. There is no evidence of stenosis. There is mild to moderate regurgitation. Aortic valve: Not well visualized. A bicuspid morphology cannot be excluded. The leaflets are mildly thickened. Valve mobility is restricted. There is no evidence of stenosis. There is mild regurgitation. Tricuspid valve: Well visualized. The leaflets are normal thickness. There is no evidence of stenosis. There is mild regurgitation. Pulmonic valve: Well visualized. The leaflets are normal thickness. There is no evidence of stenosis. There is no significant regurgitation. Aorta: The aorta is well visualized and normal size. The aortic arch appears normal. Pericardium: There is no pericardial effusion. No evidence of pleural fluid accumulation. Pulmonary arteries: Systolic pressure is mildly to moderately increased, estimated to be 49 mm Hg. Pulmonary artery pressure has increased from the previous study. Systemic veins: Not well visualized. Inferior vena cava: There is (< 50%) respiratory change in the IVC dimension. Pulmonary veins: Not well visualized. Measurements Left ventricle Value Ref Aortic valve Value Ref RON, LAX 5.0 cm 4.2 - Kelsey diam, ED 2.4 cm ----- 5.8 Kelsey diam/bsa, ED 1.1 cm/m^2 ----- ESD, LAX 3.2 cm 2.5 - Peak v, S 1.18 m/sec ----- 4.0 VTI, S 14.1 cm ----- FS, LAX 35 % 25 - 43 Mean grad, S 2.0 mm Hg ----- PW, ED, LAX 1.0 cm 0.6 - Peak grad, S 6.0 mm Hg ----- 1.0 LVOT/AV, VTI ratio 0.6 ----- FS 35 % 25 - 43 AR peak v 3.45 m/sec ----- Mid-wall FS 16 % -------- AR PHT 373 ms ----- PW, ED (H) 1.1 cm 0.6 - AR peak grad 48 mm Hg ----- 1.0 PW/ID, ED 0.22 -------- Mitral valve Value Ref E', lat kelsey, TDI (L) 8.7 cm/sec >=10.0 Peak E 1.24 m/sec -- --- E/e', lat kelsey, TDI 14 -------- Decel time 151 ms ----- E', med kelsey, TDI 8.5 cm/sec >=7.0 Peak grad, D 6.2 mm Hg -- --- E/e', med kelsey, TDI 15 -------- E', avg, TDI 8.6 cm/sec -------- Pulmonic valve Value Ref E/e', avg, TDI 14 <=14 Peak v, S 0.69 m/sec -- --- Peak grad, S 2.0 mm Hg ----- LVOT Value Ref Peak yolanda, S 0.61 m/sec -------- Tricuspid valve Value Ref VTI, S 8.5 cm -------- TR peak v (H) 3.19 m/sec <=2.8 Mean grad, S 1 mm Hg -------- Peak RV-RA grad, S 41 mm Hg ----- Max TR yolanda 3.14 m/sec ----- Ventricular septum Value Ref IVS, ED (H) 1.1 cm 0.6 - Aortic root Value Ref 1.0 Root diam 3.8 cm <4.3 Root max diam, ED 3.8 cm <4.3 Right ventricle Value Ref RON, LAX 2.9 cm -------- Ascending aorta Value Ref RON minor ax, A4C 2.7 cm 1.9 - AAo AP diam, S 3.6 cm ----- mid 3.5 AAo AP diam/bsa, S 1.7 cm/m^2 ----- Left atrium Value Ref Aortic arch Value Ref ML dim, A4C 3.8 cm -------- Arch diam 2.9 cm ----- SI dim, A4C 6.9 cm -------- Vol/bsa, ES, 1-p (H) 41 ml/m^2 12 - 37 Decending aorta Value Ref A4C Kassandra peak yolanda 0.43 m/sec ----- Vol/bsa, ES, A/L 33 ml/m^2 16 - 34 Right atrium Value Ref SI dim, ES (H) 5.9 cm 3.4 - 5.3 ML dim, ES, A4C 3.2 cm 2.6 - 4.4 SI dim, ES, A4C (H) 5.9 cm 3.4 - 5.3 SI dim/bsa, ES, A4C 2.7 cm/m^2 1.8 - 3.0 Estimated RAP 8 mm Hg -------- Legend: (L) and (H) johnnie values outside specified reference range. Prepared and electronically signed by Jonas Salazar MD 01/29/2019 09:09
[2019-01-29 09:24] LABS: Troponin I 0.15 ng/mL (<0.04)
[2019-01-29 09:25] LABS: ABS Basophils 0.1 10^3/ul (0-0.2); ABS Lymphocytes 2.2 10^3/ul (1.0-4.8); ABS Monocytes 1.9 10^3/ul (0-0.8); ABS Neutrophils 12.7 10^3/ul (1.5-7.7); Eosinophil % 0.2 %; Hematocrit 40 % (42-52); Hemoglobin 13.3 g/dL (14.0-18.0); Lymphocyte % 12.8 %; Mean Corpuscular HGB Conc 33 g/dL (31-36); Mean Corpuscular Hemoglobin 33 pg (27-31); Mean Corpuscular Volume 98 fL (80-94); Mean Platelet Volume 8.6 fL (7.4-10.4); Platelet Count 183 10^3/uL (150-450); Red Cell Distribution Width 14 % (10-15); White Blood Count 16.9 10^3/uL (3.5-10.8)
[2019-01-29 09:38] LABS: Blood Urea Nitrogen 39 mg/dL (6-24); EGFR African American 54.4 (>60); EGFR Non-African American 44.9 (>60)
--- NOTE | 2019-01-29 10:03 | PN ---
Progress Note - Progress Note Date of Service: 01/29/19 SOAP: Subjective: []Pt seen at bedside for dressing change. He denies any current chest pain or pressure. He reports shortness of breath with exertion, better with rest. Objective: [] RLE: Right hip dressing was changed, incision CDI, Thigh is soft, DF/PF intact, DP2+, sensation intact to light touch distally Calves are supple and nontender, no erythema or edema. Assessment: []73 yo M pod 2 s/p RTHA Plan: Chest pain/tightness overnight with cardiac history afib. +elevated troponins not yet peaked. Discussed with Dr Salazar cardiology, cardio will consult. Discussed with Dr Mckeon, appreciate hospitalist support. Trend troponins/monitor for any further chest pain. Scheduled for CTA vs VQ scan , ddimer On heparin drip while further workup is pending Vital Signs Temp 98.9 F 01/29/19 08:44 Pulse 113 01/29/19 08:07 Resp 16 01/29/19 08:00 BP 139/89 01/29/19 08:07 Pulse Ox 93 01/29/19 09:07 Intake & Output 01/28/19 01/29/19 01/29/19 18:59 06:59 18:59 Intake Total 1374 920 Output Total 975 1600 275 Balance 399 -680 -275 Intake: IV Fluids 779 ABX - CEFAZOLIN 779 IVPB 55 ABX - CEFAZOLIN 55 Oral 540 920 Output: Urine 975 1600 275 Other: Estimated Void Medium # Bowel Movements 0 # Voids 1 Laboratory Last Values WBC 16.9 10^3/uL (3.5-10.8) H 01/29/19 08:20 RBC 4.10 10^6 /uL (4.18-5.48) L 01/29/19 08:20 Hgb 13.3 g/dL (14.0-18.0) L 01/29/19 08:20 Hct 40 % (42-52) L 01/29/19 08:20 MCV 98 fL (80-94) H 01/29/19 08:20 MCH 33 pg (27-31) H 01/29/19 08:20 MCHC 33 g/dL (31-36) 01/29/19 08:20 RDW 14 % (10-15) 01/29/19 08:20 Plt Count 183 10^3/uL (150-450) 01/29/19 08:20 MPV 8.6 fL (7.4-10.4) 01/29/19 08:20 Neut % (Auto) 75.2 % 01/29/19 08:20 Lymph % (Auto) 12.8 % 01/29/19 08:20 [place] % (Auto) 11.4 % 01/29/19 08:20 Eos % (Auto) 0.2 % 01/29/19 08:20 Baso % (Auto) 0.4 % 01/29/19 08:20 Absolute Neuts (auto) 12.7 10^3/ul (1.5-7.7) H 01/29/19 08:20 Absolute Lymphs (auto) 2.2 10^3/ul (1.0-4.8) 01/29/19 08:20 Absolute Monos (auto) 1.9 10^3/ul (0-0.8) H 01/29/19 08:20 Absolute Eos (auto) 0.0 10^3/ul (0-0.6) 01/29/19 08:20 Absolute Basos (auto) 0.1 10^3/ul (0-0.2) 01/29/19 08:20 Absolute Nucleated RBC 0.0 10^3/ul 01/29/19 08:20 Nucleated RBC % 0.0 01/29/19 08:20 APTT 31.6 seconds (26.0-38.0) 01/29/19 08:20 Sodium 137 mmol/L (135-145) 01/29/19 04:28 Potassium 5.0 mmol/L (3.5-5.0) 01/29/19 04:28 Chloride 103 mmol/L (101-111) 01/29/19 04:28 Carbon Dioxide 26 mmol/L (22-32) 01/29/19 04:28 Anion Gap 8 mmol/L (2-11) 01/29/19 04:28 BUN 39 mg/dL (6-24) H 01/29/19 08:20 Creatinine 1.52 mg/dL (0.67-1.17) H 01/29/19 08:20 Est GFR ( Amer) 54.4 (>60) 01/29/19 08:20 Est GFR (Non-Af Amer) 44.9 (>60) 01/29/19 08:20 BUN/Creatinine Ratio 24.1 (8-20) H 01/29/19 04:28 Glucose 197 mg/dL (70-100) H 01/29/19 04:28 Calcium 9.5 mg/dL (8.6-10.3) 01/29/19 04:28 Total Bilirubin 0.70 mg/dL (0.2-1.0) 01/29/19 04:28 AST 37 U/L (13-39) 01/29/19 04:28 ALT 17 U/L (7-52) 01/29/19 04:28 Alkaline Phosphatase 38 U/L (34-104) 01/29/19 04:28 Troponin I 0.15 ng/mL (<0.04) H* 01/29/19 08:20 Total Protein 6.4 g/dL (6.4-8.9) 01/29/19 04:28 Albumin 3.9 g/dL (3.2-5.2) 01/29/19 04:28 Globulin 2.5 g/dL (2-4) 01/29/19 04:28 Albumin/Globulin Ratio 1.6 (1-3) 01/29/19 04:28
[2019-01-29] MEDS ORDERED: Furosemide IV* 10 MG/ML 2 ML VIAL (20 MG) IV ONE (10:08)
[2019-01-29] MEDS ORDERED: Albuterol/Ipratropium NEB.SOL* Albuterol 2.5 MG/Ipratropium 0.5 MG 3 ML INH PRN (10:11)
[2019-01-29] MEDS ORDERED: Aspirin 81 mg CHEW TAB* 81 MG TAB.CHEW PO SCH (11:00)
[2019-01-29] MEDS: Vitamin THERAPEUTIC TAB PO SCH (11:23)
[2019-01-29] MEDS ORDERED: Metoprolol Succinate XL TAB* 50 MG PO SCH (11:26)
[2019-01-29] MEDS ORDERED: Metoprolol Tartrate IV* 1 MG/ML 5 ML VIAL IV ONE (11:42)
[2019-01-29 12:14] LABS: Cholesterol 128 mg/dL; HDL Cholesterol 55.1 mg/dL; LDL Cholesterol 54 mg/dL; Triglycerides 97 mg/dL
[2019-01-29 12:19] LABS: Troponin I 0.29 ng/mL (<0.04)
--- NOTE | 2019-01-29 12:26 | CONS ---
CONSULTATION REPORT: DATE OF CONSULT: 01/29/19 ATTENDING PHYSICIAN: Dr. Jonas Salazar, Cardiology.* (DICTATED BY SATINDER ALBERTO NP) PRIMARY PHYSICIAN: Dr. Easton. PRIMARY DETAILER: Dr. Christian Gamboa. REASON FOR CONSULTATION: Chest pain, troponin elevation, EKG changes. HISTORY OF PRESENT ILLNESS: This is a pleasant 73-year-old gentleman with a notable history of hypertension; hyperlipidemia; persistent AFib, on metoprolol and Eliquis therapy; diastolic heart failure; colitis; and chronic kidney disease with a baseline creatinine around 1.4. The patient presented to [facility] for an elective hip replacement on 01/27/[address] Anderson. Post-operatively at 0100 on 01/29/19, the patient developed sudden onset substernal chest tightness that was nonradiating with associated sensation of feeling hot. He was not short of breath at that time. Denies dizziness or lightheadedness. EKG was obtained at that time which showed new anterolateral ST segment depression. He was started on IV heparin therapy. The patient states at that time pain persisted for several hours that then resolved. He adds that while getting his transthoracic echocardiogram he developed a different type of chest pain that was more of a soreness and reproducible with inspiration. He adds that since the echocardiogram he has been having this chest pain described as a soreness any time he tries to breathe in. He denies any recurrent chest tightness. When I saw him, he was in the holding area awaiting to get his CTA of chest to rule out PE. He had just finished using urinal and was quite tachypneic with audible wheezes. He was given DuoNeb treatment with improvement of breathing effort and his lung sounds did clear. He states that he does feel more short of breath than baseline. Last ischemic evaluation according to primary day care center director, Dr. Nikita Gamboa, whom I personally spoke with, was approximately 10 years ago due to hypertension. Last echocardiogram 01/29/19 at 0252, per report; LVEF 60% to 65%, mild left atrial dilatation, [id number] mitral valve regurgitation, mild aortic valve regurgitation, mild tricuspid regurgitation, right ventricular systolic pressure 49 mmHg, with normal wall motion. PAST MEDICAL HISTORY: 1. Hypertension. 2. Hyperlipidemia. 3. Persistent AFib. 4. Diastolic heart failure. 5. Colitis. 6. Skin cancer. 7. BPH. 8. Chronic kidney disease. PAST SURGICAL HISTORY: Includes multiple back surgeries, skin biopsy, and intervention on left thumb. HOME MEDICATIONS: According to Dr. Nikita Gamboa's office note from 01/19/19: 1. Metoprolol 100 mg a day. 2. Lovastatin 20 mg a day. 3. Eliquis 5 mg p.o. b.i.d. 4. Norvasc 5 mg a day. 5. Tramadol as directed. ALLERGIES: Include GABAPENTIN which causes tremors and BROMINE which causes a rash. He denies allergy to contrast dye or shellfish. FAMILY HISTORY: Noncontributory. SOCIAL HISTORY: The patient is , retired, lives at home with his . He states he has been more sedentary than usual due to chronic hip pain. He denies alcohol or drug use. He is a former tobacco user and quit in 2010. REVIEW OF SYSTEMS: All systems have been reviewed and otherwise negative except as above mentioned in the HPI. PHYSICAL EXAM: The patient was at upright in bed, tachypneic upon entering the room, which was the holding area in Radiology. HEENT: Head is atraumatic, normocephalic. Oral mucosa is moist. Tongue is midline. Neck: Supple. Trachea midline. No JVD. No carotid bruits. Cardiac: Normal S1 and S2. Irregular rate and rhythm. No murmur, rub, or gallop noted. Lungs: Auscultated posteriorly. Respirations were labored at a rate of 24 with audible inspiratory and expiratory wheezes. No rhonchi noted. Abdomen: Distended, firm, nontender. Normoactive bowel sounds x4. Extremities: SCDs on bilaterally and working. No pedal edema. No clubbing. No cyanosis. Peripheral Vascular: 2+ brachial and dorsalis pedis pulse palpated bilaterally and symmetrically. DIAGNOSTIC STUDIES/LAB DATA: Blood work: White count 16.9, hemoglobin 13.3, hematocrit 40, platelets 183. Sodium 137, potassium 5, chloride 103, carbon dioxide 26, BUN 39, creatinine 1.52. Troponin #1 - 0.08; troponin #2 - 0.08; troponin #3 - 0.15. ECG obtained 01/29/19 at 0800, AFib, rate [address] segment depression, no ST segment elevation appreciated, known incomplete right bundle-branch block. Chest x-ray 01/29/19, per radiology report, no evidence of acute or active cardiopulmonary disease, no effusions appreciated. ASSESSMENT AND PLAN: 1. Complaints of chest pain with new anterolateral ST segment depression and troponin elevation; troponin has not peaked, third isoenzyme was 0.15. We will continue to cycle isoenzymes, recommend continuing IV heparin therapy. After administration of DuoNeb treatment, wheezing, shortness of breath, and pleuritic chest pain resolved. Thus, it does not appear that patient requires IV nitroglycerin at this time. We will check D-dimer. The patient has known chronic kidney disease. He will need an eventual ischemic evaluation. If D- dimer is elevated, we would recommend CTA of chest. We will determine type of ischemic evaluation based on clinical course. We will start aspirin 81 mg a day. Restart home beta-everardo, which is metoprolol 100 mg a day. Recommend continuing statin therapy and continuing to trend isoenzymes. LVEF was preserved on this morning's echocardiogram with no focal wall motion abnormality. 2. Status post hip replacement. Defer to Orthopedics and Primary Service. 3. History of persistent atrial fibrillation. CHADS-VASc greater than 2 given history of hypertension and age. On IV heparin therapy at this time. We will resume metoprolol 100 mg a day. 4. Decompensated diastolic heart failure; we will start IV Lasix 20 a day. Monitor daily BNP while being diuresed due to history of chronic kidney disease. The patient did respond well to DuoNeb treatments. We will resume beta -blockade therapy. 5. History of chronic kidney disease. It appears, based on review of the outpatient labs, baseline creatinine is 1.4; we will monitor closely while receiving IV diuresis. 6. Disposition. Pending course. I personally reviewed the case with Dr. Salazar, who agrees with the above assessment and plan and has personally seen and examined the patient. Thank you for this kind consultation. Any future questions or concerns, please do not hesitate to contact our practice. SATINDER ALBERTO, BOONE [id number]/[facility] #: [id number] discussed with Ms. Alberto. Jackson examined and chart reviewed. agree with plan. Josie Radford, discussed the case with Ms. Alberto and personally examined the patient on 01.29.19. The immediately preceeding statment (discussed with , Patient examined...) was placed by me (signature attributed to Ms. Alberto should be a Martin signature MTDD
[2019-01-29] MEDS ORDERED: Perflutren Lipid Microsphere* 3 ML VIAL ONE (13:25)
[2019-01-29] MEDS ORDERED: Midazolam* 1 MG/ML 5 ML VIAL (5 MG) ONE (14:12)
[2019-01-29] MEDS ORDERED: fentaNYL* 50 MCG/ML 2 ML VIAL (100 MCG VIAL) ONE (14:12)
[2019-01-29] MEDS ORDERED: Lidocaine 1% INJ* 10 MG/ML 30 ML SDV ONE (14:13)
[2019-01-29] MEDS ORDERED: Heparin(*) 1000 UNIT/ML 10 ML VIAL CATH LAB IV ONE (14:13)
[2019-01-29] MEDS ORDERED: nitroGLYCERIN DRIP* 25,000 MCG/250 ML BTL ONE (14:13)
[2019-01-29] MEDS ORDERED: VERAPAMIL 2.5 MG/ML 2 ML VIAL ** 5 mg/2 ml ONE (14:13)
[2019-01-29] MEDS ORDERED: Iodixanol 320 (CONTRAST) 100 ML SDV ONE (14:14)
--- NOTE | 2019-01-29 14:24 | PN ---
Hospitalist Progress Note Date of Service: 01/29/19 Hospitalist Progress Note This AM, patient experienced pleuritic chest pain and noted to have elevated troponin. Night coverage ordered TTE. Morning CAT call team noted patient to have elevated troponin with ST depressions, called cardiology and ordered heparin drip and CTA. Cardiology changed CTA to V/Q scan, but patient with significant dyspnea in imaging lab and another CAT call. vitals significant for tachycardia well appearing on morning exam, able to speak in full sentences without increased WOB no JVD rrr no mgr, tachycardic lungs with minimal expiratory wheeze diffusely, crackles at base abd soft nontender LE with trace edema over ankles A/P 73M with afib on Eliquis, HTN, HFpEF, ?possible IVC filter (placed 2007), presents for R total hip arthroplasty on 01/27. Course complicated by pleuritic, positional chest pain with ST depression, increasing troponin, and elevated D- dimer. Patient also with tachycardia, although beta-everardo was held on admission. Pending further work up per ICU team. Pt was unable to tolerate V/Q scan given significant dyspnea and hypoxia. As cardiology planned possible cath if no evidence for PE, they preferred to avoid contrast load for CTA, however, this may be necessary for PE diagnosis. No evidence of Right heart strain on TTE. Patient is on heparin drip.
--- NOTE | 2019-01-29 14:36 | ECHO ---
*[facility]* [place] [address] Fax #: [phone] Limited Transthoracic Echocardiogram Patient: Juan Kennedy : 1945 Study Date: 01/29/2019 Age: 73 Gender: M HR: 108 bpm Height: 70.9 in /180 cm BSA: 2.21 m^2 Weight: 211.2 lb /96 kg BMI: 29.6 kg/m^2 *Hose Inspector And Patcher: Neelam Marinelli [facility] *Referring Physician: * Jonas Salazar MD *Reading Physician: * Jonas Salazar MD Indications: Chest Pain, unspecified. SOB. History: Atrial fibrillation. Transient ischemic attack. Risk factors: Hypertension. Dyslipidemia. Study data: Transthoracic echocardiogram, limited study. Procedure: Transthoracic echocardiography was performed. Image quality was adequate. Intravenous Definity , 4 mlswas administered. Complete 2D, spectral Doppler, and color flow Doppler. Location: ICU Patient status: Inpatient. Patient room number: 5. The previous study was not available, so comparison is made to the report of 01/29/2019. Study status: Stat. Rhythm: Atrial fibrillation. Findings Left ventricle: Systolic function is moderately reduced. The estimated ejection fraction is 35-40%. Systolic function is worse from the study of 01/29/2019 am. At that time, there was overall hyperdynamic left ventricle function with subtle relative hypokinesis of the inferior posterior segments. Regional wall motion abnormalities: Akinesis of the basal inferior and mid inferolateral myocardium; hypokinesis of the basal inferoseptal, mid-apical inferior, basal inferolateral, basal-mid anterolateral, apical septal, apical lateral, and apical myocardium. Right ventricle: Systolic function is mildly reduced. Hypokinesis of the right ventricle free wall near the apex. Prepared and electronically signed by Jonas Salazar MD 01/29/2019 14:35
[2019-01-29] MEDS ORDERED: Morphine 10 MG/ML VIAL (1 ml) ONE (15:41)
[2019-01-29] MEDS ORDERED: DOPamine 800 MG/250 ML IVPREM* 800 MG/250 ML ML CENTR ONE (16:28)
--- NOTE | 2019-01-29 16:44 | PN ---
Date of Service: 01/29/19 Critical Care Services: 73 y/o male with Hx hypertension, Afib, mitral insufficiency, CHF, and s/p IVC filter placement - had right hip replacement 2 days ago and since then has had intermittent problems with chest pain and O2 desaturation - scheduled for V/Q scan today to r/o PE but brought to ICU because of severe O2 desaturation requiring high-flow, humidified nasal O2 (Vapotherm). Vital Signs: Temp Pulse Resp BP SpO2 FiO2 97.4 F 110 26 91/73 96 100 Physical Exam: Gen:Awake and oriented. Is tachypneic, but no respiratory distress. HEENT:Normal Lungs:Clear. No crackles or wheezes Cardiac: Irreg rhythm. No murmurs Abdomen: not distended. Extremities: warm. no cyanosis or edema. Neuro: no motor or sensory deficit. Fluid Balance (Past 24 Hours): 01/28/19 01/29/19 06:59 06:59 Intake Total 3790 2294 Output Total 1625 2575 Balance 2165 -281 Weight 211 lb Intake: IV Fluids 2990 779 ABX - CEFAZOLIN 779 LR 2990 IVPB 100 55 ABX - CEFAZOLIN 100 55 Oral 700 1460 Output: Urine 950 2575 Broussard 425 Estimated Blood Loss 250 Other: Estimated Void Medium # Bowel Movements 0 # Voids 1 Labs: 01/29/19 01/29/19 01/29/19 02:06 04:28 04:28 WBC 15.8 H RBC 3.76 L Hgb 12.5 L Hct 37 L MCV 98 H MCH 33 H MCHC 34 RDW 13 Plt Count 167 MPV 8.5 Neut % (Auto) 79.4 Lymph % (Auto) 10.2 [place] % (Auto) 10.1 Eos % (Auto) 0.2 Baso % (Auto) 0.1 Absolute Neuts (auto) 12.5 H Absolute Lymphs (auto) 1.6 Absolute Monos (auto) 1.6 H Absolute Eos (auto) 0.0 Absolute Basos (auto) 0.0 Absolute Nucleated RBC 0.0 Nucleated RBC % 0.1 APTT D-Dimer, Quantitative Sodium 137 Potassium 5.0 Chloride 103 Carbon Dioxide 26 Anion Gap 8 BUN 39 H Creatinine 1.62 H Est GFR ( Amer) 50.5 Est GFR (Non-Af Amer) 41.7 BUN/Creatinine Ratio 24.1 H Glucose 197 H Calcium 9.5 Total Bilirubin 0.70 AST 37 ALT 17 Alkaline Phosphatase 38 Troponin I 0.08 H* 0.08 H* B-Natriuretic Peptide Total Protein 6.4 Albumin 3.9 Globulin 2.5 Albumin/Globulin Ratio 1.6 Triglycerides Cholesterol LDL Cholesterol HDL Cholesterol 01/29/19 01/29/19 01/29/19 08:20 08:20 08:20 WBC 16.9 H RBC 4.10 L Hgb 13.3 L Hct 40 L MCV 98 H MCH 33 H MCHC 33 RDW 14 Plt Count 183 MPV 8.6 Neut % (Auto) 75.2 Lymph % (Auto) 12.8 [place] % (Auto) 11.4 Eos % (Auto) 0.2 Baso % (Auto) 0.4 Absolute Neuts (auto) 12.7 H Absolute Lymphs (auto) 2.2 Absolute Monos (auto) 1.9 H Absolute Eos (auto) 0.0 Absolute Basos (auto) 0.1 Absolute Nucleated RBC 0.0 Nucleated RBC % 0.0 APTT 31.6 D-Dimer, Quantitative Sodium Potassium Chloride Carbon Dioxide Anion Gap BUN 39 H Creatinine 1.52 H Est GFR ( Amer) 54.4 Est GFR (Non-Af Amer) 44.9 BUN/Creatinine Ratio Glucose Calcium Total Bilirubin AST ALT Alkaline Phosphatase Troponin I 0.15 H* B-Natriuretic Peptide Total Protein Albumin Globulin Albumin/Globulin Ratio Triglycerides Cholesterol LDL Cholesterol HDL Cholesterol 01/29/19 01/29/19 01/29/19 11:38 11:38 11:38 WBC RBC Hgb Hct MCV MCH MCHC RDW Plt Count MPV Neut % (Auto) Lymph % (Auto) [place] % (Auto) Eos % (Auto) Baso % (Auto) Absolute Neuts (auto) Absolute Lymphs (auto) Absolute Monos (auto) Absolute Eos (auto) Absolute Basos (auto) Absolute Nucleated RBC Nucleated RBC % APTT D-Dimer, Quantitative 394 H Sodium Potassium Chloride Carbon Dioxide Anion Gap BUN Creatinine Est GFR ( Amer) Est GFR (Non-Af Amer) BUN/Creatinine Ratio Glucose Calcium Total Bilirubin AST ALT Alkaline Phosphatase Troponin I 0.29 H* B-Natriuretic Peptide 427 H Total Protein Albumin Globulin Albumin/Globulin Ratio Triglycerides 97 Cholesterol 128 LDL Cholesterol 54 HDL Cholesterol 55.1 Studies: TTE: Deterioration in LV function with inferior wall hypokineses on TTE from 3: 00 PM vs TTE from 7:00 AM. ECG: Afib with Q waves V1-V3. Nutrition: Oral diet - intake good Impression: Most likely source of O2 desaturation is cardiac (considering the changes on cardiac ECHO) Plan: Patient going for cardiac catheterization. Critical Care Time: 40 minutes
[2019-01-29] MEDS ORDERED: Furosemide IV* 10 MG/ML VIAL (40 MG) ONE (16:54)
--- NOTE | 2019-01-29 18:10 | DS ---
DISCHARGE SUMMARY: DATE OF ADMISSION: 01/27/19 DATE OF DISCHARGE: 01/29/19 HOSPITAL COURSE: This is a 73-year-old male with a history of atrial fibrillation, hypertension, coronary artery disease, mitral insufficiency, and hyperlipidemia who underwent an elective right hip replacement on 01/27/19 and postoperatively has had difficulty with recurrent chest pain, shortness of breath, and arterial O2 desaturation. The patient went for a V/Q scan earlier today to rule out pulmonary embolism, and while in the nuclear medicine suite, he developed worsening O2 desaturation respiratory distress and was brought to the intensive care unit. Upon admission to the ICU, the patient was placed on high-flow humidified nasal O2 (Vapotherm) and maintained arterial O2 sats in the mid 90s. Systolic blood pressure had decreased to between 100 to 110 systolic, but the patient was awake and appeared comfortable. Two transthoracic cardiac ultrasound exams today show progressive LV dysfunction, and the most recent exam shows inferior wall hypokinesis -because of the ultrasound changes, the patient went to the cardiac catheterization lab - coronary angiography showed obstructive lesions in right coronary artery, along with a high LVEDP (39 to 40 mmHg) and mitral insufficiency. Because of progressive hypotension in the label stitcher, an intra-aortic balloon pump was inserted and the patient will be transferred for further management. FINAL DIAGNOSES: 1. Ischemic cardiomyopathy with severe left ventricular dysfunction. 2. Mitral insufficiency 3. Atrial fibrillation 4. Right hip arthroplasty. 5. History of hypertension. DISPOSITION: Patient transferred to [facility] for management. [id number]/[facility] #: [id number] MTDD
[2019-01-29 18:15] VITALS: BP 82/53
[2019-01-29] MEDS: Atorvastatin* 10 MG TAB PO SCH (18:20)
--- NOTE | 2019-01-29 19:22 | PN ---
Hospitalist Progress Note Date of Service: 01/29/19
--- NOTE | 2019-01-29 19:24 | CONS ---
CARDIOLOGY CONSULT UPDATE: DATE OF CONSULT: 01/29/19 Over the course of the day, the patient had recurrent episodes of shortness of breath, diaphoresis, and chest pressure. A repeat echo in the afternoon showed more pronounced inferior posterior hypokinesis, decrease in LV function c/t earlier in the day. Because of his troponin elevation, abnormal EKG, the wall motion abnormality, he was taken to the Gyn Physician. He was found to have a severe lesion in his right coronary artery and elevated LVEDP of 32. He also had borderline blood pressures and was felt to be in cardiogenic shock. A small bolus of 20 cc for an LV gram raised the possibility of sig MR. His echo earlier in the day, in the morning, had suggested moderate MR. The concern was that he had severe ischemia and possible ischemic MR and decompensated congestive heart failure and cardiogenic shock. Dr. Mishra decided to place a balloon pump with some improvement in the patient's hemodynamics and dyspnea and I was asked to coordinate transfer to facility that could provide revascularization and possible surgical support if indeed he needed mitral valve replacement. He also might require a LVAD in the interim. I was able to contact Dr. Powell in [facility] and Dr. Brandt, the laser engraver at [facility] who kindly agreed to accept the patient transfer. I spoke to the patient's and explained the situation and she understands and concurred with the transfer prior to making the arrangements. Over 60 plus minutes were spent on the merlos coordinating care and in consultation. [id number]/[facility] #: [id number] MTDD
--- NOTE | 2019-01-29 19:27 | PN ---
Hospitalist Progress Note Date of Service: 01/29/19 Delayed entry note. Patient was having chest pain last night. Got EKG which looked abnormal with ST depression. BP was too low to give any nitro. I asked bushing press operator to connect to Cardiology but they instead connected me to interventional cardiology around 2-3AM. I spoke with Dr. Mishra for 15-20 minutes regarding the EKG explained patient already on Eliquis unable to do much else in ACS but given that the ST segments are depressed and not elevated he didn't think patient meets ST elevation IN criteria. I ordered ECHO. Patient's pain had resolved before giving nitro and given low normal range of BP I didn't think it would be advised.
[2019-01-30] MEDS ORDERED: Metoprolol Succinate XL TAB* 50 MG PO SCH (09:00)
--- NOTE | 2019-01-31 15:36 | CATH ---
CC: Dr. Easton; Dr. Gamboa at [place]; Dr. Anderson; Dr. Anuj Mishra * CATH REPORT: DATE OF PROCEDURE: 01/29/19 - ROOM #ICU-05 PRIMARY CARE PHYSICIAN: Dr. Easton. FINANCIAL COMPLIANCE OFFICER: Dr. Gamboa at [place]. ORTHOPEDIST: Dr. Anderson. PROCEDURES: Right radial artery access with ultrasound guidance. Right medial antecubital vein access, right femoral artery sheath placement, bilateral selective coronary cineangiography, placement of intra-aortic balloon pump right common femoral artery. HISTORY: A 73-year-old male with [id number] mitral regurgitation with preserved LV function on prior noninvasive testing. After hip surgery, he developed a likely type 2 infarct with very small troponin elevation, subsequent progressive symptoms of decompensated heart failure with worsening mitral regurgitation leading to hypotension with respiratory failure requiring high-flow oxygenation. There was concern for pulmonary embolus; however, because of elevated creatinine, a CT angiography was not performed, the patient was referred for a V/Q scan, which could not be completed because of severe dyspnea. He has prior IVC filter for DVT with contraindication to anticoagulation, rendering PE less likely. He was brought to the laboratory phlebotomist because of progressive hemodynamic deterioration and progressive respiratory failure. PROCEDURE ACCESS: Right radial artery sheath, 6-F slender with ultrasound. The radial wire was used to exchange the right antecubital IV for a 5-[place] sheath, however the wire would not advance more proximally, contrast injection demonstrated occlusion of the vein more proximally with filling through a bridging collateral, that approach therefore did not allow placement of a [place]- [place] catheter to assess PA pressures. By prior echo, he had moderate pulmonary hypertension. He then had bilateral coronary angiography via the radial approach as well as a 20 cc/1 second LV gram to assess the severity of his MR with limitation of contrast because of his elevated creatinine. Because of progressive hypotension in the laboratory phlebotomist with systolics into the 70 to 80s, dopamine 2 mcg/kg/min was started through a sheath in the right femoral vein, and an intra-aortic balloon pump was placed in the right common femoral artery with ultrasound assistance. MEDICATIONS: 1. Subcu lidocaine. 2. IV fentanyl. 3. Morphine 2 mg IV. HEMODYNAMICS: Initial BP 93/66, LV post coronary angiography 78/22-31. Mean blood pressure with intra-aortic balloon pump in place 70s. ANGIOGRAPHY: RCA: The RCA is heavily calcified, dominant, moderate, the mid RCA just proximal to the acute margin has a tubular 80% to 90% stenosis preceded by moderate diffuse disease. Distally, the PDA is moderate followed by moderate posterolateral. Flow is LEEANN-3, there is no evident thrombus. Left main: The left main is normal in size, has no stenosis, there is calcification at the left main as well as proximal LAD and circumflex coronary arteries. The LAD supplies a pair of small to moderate diagonals, and is distally past the apex, the LAD has scattered luminal irregularity but no significant stenosis. Circumflex: The circumflex is moderate, nondominant, with a moderate marginal branch and small distal posterolateral, the circumflex has scattered mild luminal irregularity but no significant stenosis. LV gram: 20 cc/1 second LV gram shows inferobasilar akinesis, with inadequate LV filling to assess global EF. The inferior wall, however, appears hypokinetic. There is left atrial filling on the first beat after injection suggestive of severe mitral regurgitation. Volume load was limited because of renal insufficiency. CONCLUSION: Single-vessel disease right coronary artery with likely type 2 infarct due to decompensated diastolic heart failure leading to inferior wall stunning with very small troponin elevation, progressively worsening mitral regurgitation leading to cardiogenic shock, stabilized with intra-aortic balloon pump counterpulsation. The patient was subsequently transferred to [facility] for further evaluation and potential high-risk PCI intervention versus surgical therapy. [id number]/[facility] #: [id number] MTDD
--- NOTE | 2019-02-13 12:38 | OP ---
Operative Report - Blank - Operative Report Date of Operation: 01/27/19 Note: GENOVEVA MONTENEGRO 1945 Date Of Surgery: 01/27/19 Maya Anderson MD Signalman: Pardeep HA did help throughout the procedure with preparation of the hip, wound retraction, manipulation of the hip, and wound closure. Anesthesiologist: Rose Parrish MD Anesthesia Type: Spinal Preoperative Diagnosis: Right severe degenerative osteoarthritis of the hip Postoperative Diagnosis: As above Procedure Performed: Right Total Hip Arthroplasty Complications: None Specimen: Femoral head and acetabular reamings sent to pathology. Hardware used: This is uncemented Alfredo total hip arthroplasty hardware for the femur a accolade II femoral component, for the acetabulum a size 54 E tritanium II trident cluster hole shell with one screw, for the insert a size 42E MDM cementless liner, 28/48/42E x3 MDM insert, and for the femoral head a size 28 +8 V40 femoral head. Brief history/Indication: GENOVEVA MONTENEGRO was known in clinic and had a history of severe right hip pain. He failed conservative treatment with anti- inflammatories, pain pills, intra-articular injections and physical therapy. He elected to undergo right total hip arthroplasty due to continued pain and decreased quality of life. Radiographs showed severe end stage osteoarthritis of the hip with bone on bone contact. Informed consent was obtained from the patient. He understood the risks of surgery included but were not limited to: bleeding, infection, damage to nearby structures, intraoperative fracture, nerve palsy, failure of the hardware, early loosening, stiffness or loss of motion, dislocation, leg length discrepancy, anesthesia complications, stroke, heart attack, blood clot and . He wished to proceed. Intra-Operative findings: Intraoperatively the patient was noted to have severe loss of cartilage of the acetabulum and femoral head. Description of the Procedure: GENOVEVA MONTENEGRO was identified in the preanesthesia unit. His right hip was marked as the correct operative side. Informed consent was signed and placed in the chart. The patient was taken to the operating room and placed under anesthesia without complication. A patel catheter was placed. The patient was placed on the peg board with all bony prominences well padded. The right lower extremity was prepped and draped in the usual sterile fashion. Preoperative time -out was made to correctly identify the patient, side and site. Appropriate intraoperative antibiotics were given within one hour of incision. A standard posterior incision was made and carried sharply down to the lateral fascia. A new 10 blade was used to make an incision in the fascia in line with the skin incision. A charnley retractor was placed. The piriformis and conjoined tendons were identified and elevated off the posterolateral femur using electrocautery. These were tagged with number 5 Ethibond. Next electrocautery was used to make a posterolateral capsular flap and this was tagged with number 5 Ethibonds. The hip was carefully dislocated. Lesser trochanter to the center of the femoral head was measured at 65 mm. The oscillating saw was used to make the femoral neck cut. The femoral head was carefully removed. The femur was retracted anteriorly and the acetabular retractors were placed. Long-handled knife was used to sharply remove any remaining labrum from the acetabular rim. The acetabulum was sequentially reamed up to a size 54. A bleeding subchondral bone bed was obtained. A trial liner was placed and had excellent fit and stability. A 54E trident II tritanium cup with a screw was placed and had excellent stability with appropriate anteversion and abduction angle. A size 42 E cementless mdm liner was impacted into the acetabular shell. The liner was checked for stability and was stable. Next attention was turned to preparation of the femoral canal. A canal finder was used to enter the proximal femur. The femoral canal was sequentially broached up to tight press fit. A trial neck and 28 +8 trial femoral head was chosen. Lesser trochanter to center of the femoral head measurement was satisfactory. The hip was reduced and taken through a range of motion. The hip was stable in all positions with good soft tissue tension and appropriate leg lengths. The hip was dislocated and all trials were removed. The final implant chosen was an accolade II stem. This stem was impacted into the femoral canal without difficulty. The stem was stable with appropriate anteversion. The femoral head chosen was a 28 + 8 with the 28/42E x3 mdm liner. The head was impacted onto the femoral neck without difficulty. The final lesser trochanter to center of the femoral head measurement was satisfactory. The hip was reduced and taken through a range of motion. The hip was stable in all positions with good soft tissue tension and appropriate leg lengths. The hip was copiously irrigated with sterile saline. The previously tagged capsule and tendons were repaired to the posterolateral femur through two trochanteric drill holes. The lateral fascia layer was closed using number 1 vicryls. The rest of the incision was closed in a layered fashion using 0 and 2-0 vicryls. The skin was closed using 3-0 monocryl suture and Dermabond. Sterile adaptic, 4x4s and paper tape was used to cover the incision. The patients anesthesia was reversed without difficulty. He was taken to the PACU in stable condition. Intended weight-bearing will be as tolerated with posterior hip precautions.
== END 2019-01-29 19:00 | disposition short-term general hospital (02) | DRG 469 ==
LOC: AA 07:06 → SSU 13:57 → MEDTELE 01-29 08:13 → ICU 01-29 13:23
PROVIDERS: ADMIT Orthopaedic Surgery Adult Reconstructive Orthopaedic Surgery; ATTEND Internal Medicine Critical Care Medicine
PROC: 4A023N7 Measurement of Cardiac Sampling and Pressure, Left Heart, Percutaneous Approach (ICD-10-PCS; 2019-01-27)
PROC: 0SR904A Replacement of Right Hip Joint with Ceramic on Polyethylene Synthetic Substitute, Uncemented, Open Approach (ICD-10-PCS; principal; 2019-01-27 09:00)
PROC: 5A02210 Assistance with Cardiac Output using Balloon Pump, Continuous (ICD-10-PCS; 2019-01-29)
PROC: B211YZZ Fluoroscopy of Multiple Coronary Arteries using Other Contrast (ICD-10-PCS; 2019-01-29)
DX: M16.11 Unilateral primary osteoarthritis, right hip (principal); I50.33 Acute on chronic diastolic (congestive) heart failure; R57.0 Cardiogenic shock; I21.A1 Myocardial infarction type 2; I13.0 Hypertensive heart and chronic kidney disease with heart failure and stage 1 through stage 4 chronic kidney disease, or unspecified chronic kidney disease; I48.1 Persistent atrial fibrillation; I95.9 Hypotension, unspecified; I25.5 Ischemic cardiomyopathy; I08.3 Combined rheumatic disorders of mitral, aortic and tricuspid valves; E78.00 Pure hypercholesterolemia, unspecified; E78.5 Hyperlipidemia, unspecified; F32.9 Major depressive disorder, single episode, unspecified; N40.0 Benign prostatic hyperplasia without lower urinary tract symptoms; K52.9 Noninfective gastroenteritis and colitis, unspecified; N18.9 Chronic kidney disease, unspecified; M25.751 Osteophyte, right hip; I25.10 Atherosclerotic heart disease of native coronary artery without angina pectoris; Z86.73 Personal history of transient ischemic attack (TIA), and cerebral infarction without residual deficits; Z85.828 Personal history of other malignant neoplasm of skin; Z79.01 Long term (current) use of anticoagulants; Z79.1 Long term (current) use of non-steroidal anti-inflammatories (NSAID); Z79.899 Other long term (current) drug therapy; Z88.8 Allergy status to other drugs, medicaments and biological substances; Z82.49 Family history of ischemic heart disease and other diseases of the circulatory system; Z80.0 Family history of malignant neoplasm of digestive organs; Z87.891 Personal history of nicotine dependence
CPT/HCPCS: 33967; 36415; 71046; 72170; 80048; 80053; 80061; 82565; 82803; 83880; 84484; 84520; 85014; 85018; 85025; 85049; 85347; 85379; 85730; 88304; 88311; 93005; 93306; 93308; 93458; 94640; A9270-GY; C1713; C1725; C1776; C1887; C8924; G8978-GP-CJ; G8979-GP-CI; J0690; J1100; J1170; J1265; J1644; J1940; J2250; J2270; J2405; J2704; J2795; J3010; J3490

== ENCOUNTER 2024-03-20 09:01 | Inpatient (IN) ==
[2024-03-20 09:56] LABS: ABS Eosinophils 0.1 10^3/uL (0.0-0.5); ABS Lymphocytes 0.9 10^3/uL (1.0-4.8); ABS Monocytes 1.2 10^3/uL (0.0-1.1); ABS Neutrophils 7.4 10^3/uL (1.5-7.6); Eosinophil % 0.8 %; Hemoglobin 14.8 g/dL (13.2-16.3); Lymphocyte % 9.2 %; Mean Corpuscular Hgb Conc 32.9 g/dL (31-36); Mean Corpuscular Volume 100.2 fL (80-97); Mean Platelet Volume 8.4 fL (7.5-11.2); Platelet Count 179 10^3/uL (150-450); Red Blood Count 4.49 10^6/uL (4.06-5.63); Red Cell Distribution Width 15.8 % (12-17); White Blood Count 9.6 10^3/uL (3.6-10.2)
[2024-03-20 10:21] LABS: High Sens Troponin Baseline 174 pg/mL (<20)
[2024-03-20 10:38] LABS: ALT 39 U/L (7-52); Albumin 4.4 g/dL (3.2-5.2); Albumin/Globulin Ratio 1.5 (1-3); Alkaline Phosphatase 79 U/L (35-149); Anion Gap 9 mmol/L (2-16); Blood Urea Nitrogen 52 mg/dL (6-24); CO2 Carbon Dioxide 25 mmol/L (22-32); Calcium 9.4 mg/dL (8.6-10.3); Chloride 105 mmol/L (101-111); Creatinine, Serum 2.01 mg/dL (0.67-1.17); Glucose 140 mg/dL (70-100); Magnesium 2.1 mg/dL (1.9-2.7); Sodium 139 mmol/L (135-145); Total Bilirubin 1.5 mg/dL (0.2-1.0); Total Protein 7.4 g/dL (6.4-8.9); eGFR CKD-EPI 32.9 (>60)
[2024-03-20 10:52] LABS: TSH Ultra Thyroid Stim Horm 3.76 mcIU/mL (0.34-5.60)
[2024-03-20] MEDS: Iodixanol 320 (CONTRAST) 100 ML SDV IV ONE (11:23)
[2024-03-20 11:39] LABS: Potassium Redraw 5.2 mmol/L (3.5-5.0)
[2024-03-20 13:09] LABS: Urine Appearance Clear; Urine Bilirubin Negative (Negative); Urine Blood Trace (Negative); Urine Color Light-Yellow; Urine Glucose Negative (Negative); Urine Ketones Negative (Negative); Urine Nitrite Negative (Negative); Urine Protein Negative (Negative); Urine Specific Gravity 1.025 (1.002-1.030); Urine Urobilinogen Negative (Negative)
[2024-03-20] MEDS: Sulfur Hexaflouride MICROSPHR 25 MG VIAL IV PRN (15:43)
[2024-03-20 17:20] LABS: Folate 13.38 ng/mL (5.90-24.80)
[2024-03-20 17:21] LABS: Vitamin B12 462 pg/mL (180-914)
[2024-03-20 17:30] LABS: Calcium 9.5 mg/dL (8.6-10.3); Creatinine, Serum 1.95 mg/dL (0.67-1.17); Potassium 4.8 mmol/L (3.5-5.0); eGFR CKD-EPI 34.1 (>60)
[2024-03-20 17:50] LABS: .Transferrin 298 mg/dL (203-362); Total Iron Binding Capacity 417 mcg/dL (250-450)
[2024-03-20 18:44] LABS: Ferritin 166.4 ng/mL (24-336)
[2024-03-21 05:49] LABS: ABS Eosinophils 0.1 10^3/uL (0.0-0.5); ABS Monocytes 1.3 10^3/uL (0.0-1.1); ABS Neutrophils 7.3 10^3/uL (1.5-7.6); Eosinophil % 0.7 %; Hematocrit 40.5 % (38-53); Hemoglobin 13.6 g/dL (13.2-16.3); Lymphocyte % 10.4 %; Mean Corpuscular Hemoglobin 33.2 pg (27-33); Mean Corpuscular Hgb Conc 33.5 g/dL (31-36); Mean Corpuscular Volume 99.1 fL (80-97); Mean Platelet Volume 8.7 fL (7.5-11.2); Platelet Count 154 10^3/uL (150-450); Red Blood Count 4.09 10^6/uL (4.06-5.63); Red Cell Distribution Width 15.9 % (12-17); White Blood Count 9.7 10^3/uL (3.6-10.2)
[2024-03-21 06:07] LABS: Albumin/Globulin Ratio 1.5 (1-3); Calcium 9.1 mg/dL (8.6-10.3); Creatinine, Serum 1.7 mg/dL (0.67-1.17); Globulin 2.6 g/dL (2-4); Potassium 4.7 mmol/L (3.5-5.0); Total Protein 6.6 g/dL (6.4-8.9); eGFR CKD-EPI 40.2 (>60)
[2024-03-22 06:24] LABS: ABS Basophils 0.1 10^3/uL (0.0-0.1); ABS Eosinophils 0.1 10^3/uL (0.0-0.5); ABS Lymphocytes 0.9 10^3/uL (1.0-4.8); ABS Monocytes 1.3 10^3/uL (0.0-1.1); ABS Neutrophils 6.8 10^3/uL (1.5-7.6); Eosinophil % 1.6 %; Hematocrit 40.2 % (38-53); Hemoglobin 13.8 g/dL (13.2-16.3); Mean Corpuscular Hemoglobin 33.9 pg (27-33); Mean Corpuscular Hgb Conc 34.3 g/dL (31-36); Mean Corpuscular Volume 98.7 fL (80-97); Mean Platelet Volume 8.4 fL (7.5-11.2); Platelet Count 144 10^3/uL (150-450); Red Blood Count 4.07 10^6/uL (4.06-5.63); Red Cell Distribution Width 15.5 % (12-17); White Blood Count 9.3 10^3/uL (3.6-10.2)
[2024-03-22 06:49] LABS: Albumin 3.8 g/dL (3.2-5.2); Albumin/Globulin Ratio 1.5 (1-3); Calcium 9.4 mg/dL (8.6-10.3); Creatinine, Serum 1.63 mg/dL (0.67-1.17); Globulin 2.5 g/dL (2-4); Phosphorus 3.6 mg/dL (2.5-5.0); Potassium 4.5 mmol/L (3.5-5.0); Total Bilirubin 2.2 mg/dL (0.2-1.0); Total Protein 6.3 g/dL (6.4-8.9); eGFR CKD-EPI 42.3 (>60)
[2024-03-22] MEDS: Insulin GLARGINE 100 un/ml 10 ml VIAL SUBCUT SCH (08:21)
[2024-03-23 05:39] LABS: Hematocrit 40.4 % (38-53); Hemoglobin 13.7 g/dL (13.2-16.3); Mean Corpuscular Hemoglobin 33.9 pg (27-33); Mean Corpuscular Hgb Conc 34.1 g/dL (31-36); Mean Corpuscular Volume 99.4 fL (80-97); Mean Platelet Volume 8.5 fL (7.5-11.2); Platelet Count 147 10^3/uL (150-450); Red Blood Count 4.06 10^6/uL (4.06-5.63); Red Cell Distribution Width 15.6 % (12-17); White Blood Count 9.1 10^3/uL (3.6-10.2)
[2024-03-23 05:54] LABS: ABS Basophils 0.1 10^3/uL (0.0-0.1); ABS Eosinophils 0.2 10^3/uL (0.0-0.5); ABS Lymphocytes 1.2 10^3/uL (1.0-4.8); ABS Monocytes 1.6 10^3/uL (0.0-1.1); ABS Neutrophils 6.1 10^3/uL (1.5-7.6); Eosinophil % 2.3 %; Lymphocyte % 12.8 %
[2024-03-23 06:05] LABS: Calcium 9.2 mg/dL (8.6-10.3); Creatinine, Serum 1.74 mg/dL (0.67-1.17); Magnesium 1.9 mg/dL (1.9-2.7); Potassium 4.5 mmol/L (3.5-5.0); eGFR CKD-EPI 39.1 (>60)
[2024-03-23] MEDS: Magnesium Sulfate 2 gm BAG 2 GM/50 ML BAG IVPB ONE (08:00)
[2024-03-23] MEDS: Furosemide 20 mg/2 ml IV VIAL IV ONE (11:35)
[2024-03-23 19:40] LABS: Calcium 9.5 mg/dL (8.6-10.3); Creatinine, Serum 2.01 mg/dL (0.67-1.17); Potassium 5.8 mmol/L (3.5-5.0); eGFR CKD-EPI 32.9 (>60)
[2024-03-23 22:53] LABS: Magnesium 2.2 mg/dL (1.9-2.7); Potassium 4.8 mmol/L (3.5-5.0)
[2024-03-24] MEDS: Dextrose 50% Syringe 50 ml 25 GM/50 ML SYRINGE IV PUSH PRN (03:22)
[2024-03-24 06:35] LABS: ABS Eosinophils 0.2 10^3/uL (0.0-0.5); ABS Monocytes 1.4 10^3/uL (0.0-1.1); ABS Nucleated RBC 0.01 10^3/ul; Eosinophil % 2.1 %; Hematocrit 41.5 % (38-53); Hemoglobin 14.2 g/dL (13.2-16.3); Lymphocyte % 11.4 %; Mean Corpuscular Hemoglobin 33.8 pg (27-33); Mean Corpuscular Hgb Conc 34.3 g/dL (31-36); Mean Corpuscular Volume 98.5 fL (80-97); Mean Platelet Volume 8.6 fL (7.5-11.2); Nucleated Red Blood Cells % 0.1 %/100WBC (0.0-0.8); Platelet Count 155 10^3/uL (150-450); Red Blood Count 4.21 10^6/uL (4.06-5.63); Red Cell Distribution Width 15.2 % (12-17); White Blood Count 8.6 10^3/uL (3.6-10.2)
[2024-03-24 06:53] LABS: Calcium 9.1 mg/dL (8.6-10.3); Creatinine, Serum 1.7 mg/dL (0.67-1.17); Magnesium 2.1 mg/dL (1.9-2.7); Potassium 4.4 mmol/L (3.5-5.0); eGFR CKD-EPI 40.2 (>60)
[2024-03-24] MEDS ORDERED: Aminophylline 25 MG/ML VIAL ONE (08:27)
[2024-03-24] MEDS ORDERED: Regadenoson 0.4 MG/5 ML SYRINGE ONE (08:34)
[2024-03-24] MEDS: Insulin GLARGINE 100 un/ml 10 ml VIAL SUBCUT SCH ×2 (10:46→12:04)
[2024-03-25 05:36] LABS: ABS Eosinophils 0.2 10^3/uL (0.0-0.5); ABS Monocytes 1.4 10^3/uL (0.0-1.1); ABS Neutrophils 6.1 10^3/uL (1.5-7.6); Eosinophil % 2.1 %; Hematocrit 41.7 % (38-53); Hemoglobin 14.3 g/dL (13.2-16.3); Lymphocyte % 11.9 %; Mean Corpuscular Hgb Conc 34.2 g/dL (31-36); Mean Corpuscular Volume 99.4 fL (80-97); Mean Platelet Volume 8.7 fL (7.5-11.2); Platelet Count 166 10^3/uL (150-450); Red Cell Distribution Width 14.9 % (12-17); White Blood Count 8.7 10^3/uL (3.6-10.2)
[2024-03-25 05:56] LABS: Calcium 9.1 mg/dL (8.6-10.3); Creatinine, Serum 1.7 mg/dL (0.67-1.17); Potassium 4.4 mmol/L (3.5-5.0); eGFR CKD-EPI 40.2 (>60)
[2024-03-25] MEDS: Magnesium Sulfate 2 gm BAG 2 GM/50 ML BAG IVPB ONE (07:55)
[2024-03-25] MEDS ORDERED: Sulfur Hexaflouride MICROSPHR 25 MG VIAL IV PRN (17:55)
[2024-03-25] MEDS: Nystatin TOP POWDER 15 GM BTL TOPICAL SCH (21:32)
[2024-03-26 07:03] LABS: ABS Eosinophils 0.2 10^3/uL (0.0-0.5); ABS Lymphocytes 1.2 10^3/uL (1.0-4.8); ABS Monocytes 1.2 10^3/uL (0.0-1.1); ABS Neutrophils 5.2 10^3/uL (1.5-7.6); Eosinophil % 2.4 %; Hematocrit 43.5 % (38-53); Hemoglobin 14.8 g/dL (13.2-16.3); Lymphocyte % 15.3 %; Mean Corpuscular Hemoglobin 33.6 pg (27-33); Mean Corpuscular Hgb Conc 33.9 g/dL (31-36); Mean Corpuscular Volume 99.2 fL (80-97); Mean Platelet Volume 8.4 fL (7.5-11.2); Platelet Count 175 10^3/uL (150-450); Red Blood Count 4.39 10^6/uL (4.06-5.63); Red Cell Distribution Width 15.3 % (12-17); White Blood Count 7.8 10^3/uL (3.6-10.2)
[2024-03-26 07:24] LABS: Calcium 9.3 mg/dL (8.6-10.3); Creatinine, Serum 1.67 mg/dL (0.67-1.17); Magnesium 2.1 mg/dL (1.9-2.7); Potassium 4.6 mmol/L (3.5-5.0); eGFR CKD-EPI 41.1 (>60)
[2024-03-27 06:07] LABS: ABS Basophils 0.1 10^3/uL (0.0-0.1); ABS Eosinophils 0.2 10^3/uL (0.0-0.5); ABS Lymphocytes 1.3 10^3/uL (1.0-4.8); ABS Monocytes 1.1 10^3/uL (0.0-1.1); ABS Neutrophils 5.2 10^3/uL (1.5-7.6); Eosinophil % 2.3 %; Hematocrit 43.6 % (38-53); Hemoglobin 14.6 g/dL (13.2-16.3); Lymphocyte % 16.4 %; Mean Corpuscular Hemoglobin 33.2 pg (27-33); Mean Corpuscular Hgb Conc 33.4 g/dL (31-36); Mean Corpuscular Volume 99.5 fL (80-97); Mean Platelet Volume 8.2 fL (7.5-11.2); Platelet Count 184 10^3/uL (150-450); Red Blood Count 4.38 10^6/uL (4.06-5.63); White Blood Count 7.9 10^3/uL (3.6-10.2)
[2024-03-27 07:30] LABS: Calcium 9.5 mg/dL (8.6-10.3); Creatinine, Serum 1.78 mg/dL (0.67-1.17); Potassium 4.3 mmol/L (3.5-5.0); eGFR CKD-EPI 38.1 (>60)
[2024-03-27 10:18] VITALS: BP 127/72
== END 2024-03-27 14:45 | disposition home or self-care (01) | DRG 292 ==
LOC: ED 09:01 → EDHOLD 09:01 → SUATTDRO 13:56 → MEDTELE 15:30 → SUATTDRO 03-23 09:41
PROVIDERS: ADMIT Internal Medicine; ATTEND Internal Medicine

== ENCOUNTER 2024-04-01 10:47 | Observation (INO) ==
[2024-04-01 11:19] LABS: ABS Basophils 0.1 10^3/uL (0.0-0.1); ABS Eosinophils 0.1 10^3/uL (0.0-0.5); ABS Monocytes 1.3 10^3/uL (0.0-1.1); ABS Neutrophils 7.6 10^3/uL (1.5-7.6); Eosinophil % 1.1 %; Hematocrit 41.6 % (38-53); Hemoglobin 13.8 g/dL (13.2-16.3); Lymphocyte % 10.1 %; Mean Corpuscular Hemoglobin 33.5 pg (27-33); Mean Corpuscular Hgb Conc 33.3 g/dL (31-36); Mean Corpuscular Volume 100.4 fL (80-97); Mean Platelet Volume 8.3 fL (7.5-11.2); Platelet Count 176 10^3/uL (150-450); Red Blood Count 4.14 10^6/uL (4.06-5.63); Red Cell Distribution Width 15.1 % (12-17); White Blood Count 10.1 10^3/uL (3.6-10.2)
[2024-04-01 11:26] LABS: INR 1.25 (0.85-1.14)
[2024-04-01 12:22] LABS: Albumin 4.2 g/dL (3.2-5.2); Albumin/Globulin Ratio 1.7 (1-3); Calcium 9.3 mg/dL (8.6-10.3); Creatinine, Serum 1.92 mg/dL (0.67-1.17); Globulin 2.5 g/dL (2-4); Potassium 4.7 mmol/L (3.5-5.0); Total Bilirubin 1.2 mg/dL (0.2-1.0); Total Protein 6.7 g/dL (6.4-8.9); eGFR CKD-EPI 34.8 (>60)
[2024-04-01 12:37] LABS: High Sensitivity Troponin 1 Hr 90 pg/mL (<20)
[2024-04-01] MEDS: [UNRECOGNIZED DRUG - REMARK] TOPICAL SCH (22:43)
[2024-04-02 05:31] LABS: ABS Basophils 0.1 10^3/uL (0.0-0.1); ABS Eosinophils 0.2 10^3/uL (0.0-0.5); ABS Lymphocytes 1.3 10^3/uL (1.0-4.8); ABS Monocytes 1.3 10^3/uL (0.0-1.1); ABS Neutrophils 6.7 10^3/uL (1.5-7.6); Eosinophil % 2.1 %; Hematocrit 40.6 % (38-53); Hemoglobin 13.8 g/dL (13.2-16.3); Lymphocyte % 13.5 %; Mean Corpuscular Volume 99.9 fL (80-97); Mean Platelet Volume 8.5 fL (7.5-11.2); Platelet Count 175 10^3/uL (150-450); Red Blood Count 4.07 10^6/uL (4.06-5.63); Red Cell Distribution Width 14.9 % (12-17); White Blood Count 9.5 10^3/uL (3.6-10.2)
[2024-04-02 05:45] LABS: Calcium 9.5 mg/dL (8.6-10.3); Creatinine, Serum 1.65 mg/dL (0.67-1.17); Magnesium 1.8 mg/dL (1.9-2.7); Potassium 4.3 mmol/L (3.5-5.0); eGFR CKD-EPI 41.7 (>60)
[2024-04-02] MEDS: Magnesium Sulfate IV 1GM/100ML 1 GM/100 ML BAG IV ONE (09:33)
[2024-04-02] MEDS ORDERED: Dextrose 50% Syringe 50 ml 25 GM/50 ML SYRINGE IV PUSH PRN (11:58)
[2024-04-02] MEDS: Furosemide 40 mg/4 ml IV VIAL IV ONE (12:14)
[2024-04-03 12:44] VITALS: BP 109/70
== END 2024-04-03 13:50 | disposition home or self-care (01) ==
LOC: ED 10:47 → EDHOLD 10:47 → MEDTELE 16:05
PROVIDERS: ADMIT Internal Medicine; ATTEND Internal Medicine